=== PATIENT | male | born 1955 | race Caucasian/White ===

== ENCOUNTER 2016-07-07 13:08 | Emergency (ER) | payer BC ==
[~2016-07-07] VITALS: Ht 172.7 cm; Wt 121.0 kg
[~2016-07-07 13:08] MED LIST: ASPI81TA21 PO; CHN/1 PO; HYDR25TA4 PO; LISI-729 PO; OMEG10007 PO; OMEP40CA PO; TRAM-10 PO; VSC/10 PO
[2016-07-07 13:12] VITALS: TEMP 37; Ht 172.7 cm; Wt 121.0 kg
[2016-07-07] MEDS ORDERED: SODIUM CHLORIDE 0.9% 1000ML 500 ML IV STA (13:46)
[2016-07-07] MEDS ORDERED: ONDANSETRON INJ 2 MG/ML 2 ML VIAL IV STA (13:46)
[2016-07-07] MEDS ORDERED: ALBUT/IPRATROP 3MG/0.5MG NEB 3 ML VIAL INH STA (13:46)
[2016-07-07] MEDS ORDERED: SODIUM CHLORIDE 0.9% 1000ML 1,000 ML IV STA (13:46)
--- NOTE | 2016-07-07 14:27 | DIAGNOSTIC IMAGING REPORT ---
CHEST ONE VIEW PORTABLE CLINICAL HISTORY: Respiratory distress, dyspnea, flulike symptoms. COMPARISON STUDY: 01/15/2015 FINDINGS: The heart is at the upper limits of normal in size. There is no overt failure. There is no lobar consolidation. There are no pleural effusions. There is a linear band of atelectasis/scarring at the right lung base.[ IMPRESSION: No active disease in the chest. Electronically signed by: Chava Lazaro M.D. 07/07/2016 2:25 PM Dictated Date/Time: 07/07/2016 2:24 PM
[2016-07-07 14:28] LABS: BASO % 0.1 %; BASO ABS # 0.01 K/uL (0-0.2); COMPLETE YES; EOS % 0.5 %; HEMATOCRIT 43.9 % (42-52); IG% 0.2 %; LYMPH % 17.2 %; LYMPH ABS # 2.12 K/uL (1.2-3.4); MEAN CELL VOLUME 82.4 fL (80-100); MEAN CORPUSCULAR HEMOGLOBIN 29.3 pg (25-34); MEAN CORPUSCULAR HGB CONC 35.5 g/dl (32-36); MONO % 5.1 %; NEUT % 76.9 %; PLATELET COUNT 197 K/uL (130-400); RED BLOOD COUNT 5.33 M/uL (4.7-6.1); WHITE BLOOD COUNT 12.31 K/uL (4.8-10.8)
[2016-07-07 14:47] LABS: BLOOD UREA NITROGEN 11 mg/dl (7-18); CALCIUM 8.6 mg/dl (8.5-10.1); CARBON DIOXIDE 27 mmol/L (21-32); CHLORIDE 100 mmol/L (98-107); CREATININE 0.91 mg/dl (0.60-1.40); GLUCOSE 91 mg/dl (70-99); POTASSIUM 3.4 mmol/L (3.5-5.1); SODIUM 139 mmol/L (136-145)
[2016-07-07 14:51] LABS: ALB/GLOB RATIO 1.1 (0.9-2); ALKALINE PHOSPHATASE 77 U/L (45-117); ALT/SGPT 47 U/L (12-78); AST/SGOT 40 U/L (15-37)
[2016-07-07 14:57] VITALS: O2SAT 91
[2016-07-07 15:05] LABS: URINE APPEARANCE CLEAR (CLEAR); URINE BILIRUBIN NEG (NEG); URINE COLOR YELLOW; URINE NITRITE NEG (NEG); URINE PH 8.5 (4.5-7.5); URINE SPECIFIC GRAVITY 1.015 (1.000-1.030); UROBILINOGEN NEG (NEG); ZZUR CULT IF INDIC CLEAN CATCH YES
[2016-07-07 15:16] LABS: MANUAL MICROSCOPIC REQUIRED? NO; REVIEW REQ? NO
[2016-07-07] MEDS ORDERED: SODIUM CHLORIDE 0.9% 500ML 500 ML IV STA (15:23)
[2016-07-07] MEDS ORDERED: ALBUTEROL HFA 8 GM INHALER INH ONE (15:45)
--- NOTE | 2016-07-07 15:55 | EMERGENCY ROOM VISIT NOTE ---
History Report prepared by Elida: Ara Dsouza Under the Supervision of: Dr. Robert Schaefer M.D. First contact with patient: 13:39 Chief Complaint: FLU LIKE SX Stated Complaint: FLU LIKE SX History of Present Illness The patient is a 60 year old male who presents to the Emergency Room with complaints of improved shortness of breath starting about a week ago. He reports a cough with greenish phlegm and nasal congestion. He has some back pain with coughing. He also complains of weakness. He has worsening symptoms with lying down. He reports a resolved sore throat, fevers, and chills. The patient has had a normal fluid intake. He denies vomiting, diarrhea, urinary symptoms, or any other complaints. He used to be a smoker. He has a history of mild COPD but does not have any inhalers. He did not receive a flu shot this year. The patient had recent ill contacts at work. 3 months ago, the patient had surgery on his bladder for bladder cancer. Source of History: patient Onset: about a week ago Position: other (global) Quality: other (shortness of breath) Timing: other (improved) Modifying Factors (Worsening): other (lying down) Associated Symptoms: + back pain, + chills (resolved), + cough, + fevers ( resolved), + sorethroat (resolved), + weakness, No diarrhea, No urinary symptoms , No vomiting Review of Systems See HPI for pertinent positives & negatives. A total of 10 systems reviewed and were otherwise negative. Past Medical & Surgical Medical Problems: (1) atypical chest discomfort (2) Benign hypertension (3) Bladder cancer (4) cold hands and feet (5) COPD (chronic obstructive pulmonary disease) (6) Hyperlipidemia Family History Diabetes mellitus FH: heart disease FHx: lung disease Hypertension Social History Smoking Status: Former Smoker Marital Status: Occupation Status: employed Current/Historical Medications Scheduled Albuterol Hfa (Ventolin Hfa), 3 PUFFS INH Q4 Aspirin Enteric Coated (Ecotrin Or Generic), 81 MG PO QAM Azithromycin (Zithromax Z-Zach), 1 PKT PO DIRECTED Fish Oil ([place]-3), 300 MG PO QAM Hydrochlorothiazide (Hctz), 25 MG PO QAM Lisinopril (Prinivil), 5 MG PO QAM Omeprazole (Prilosec), 40 MG PO QAM Prednisone (Prednisone), 2 TAB PO DAILY Solifenacin Succinate (Vesicare), 1 TAB PO DAILY Allergies Coded Allergies: Statins (Verified Allergy, Unknown, MUSCLE ACHES, 07/07/16) Codeine (Verified Adverse Reaction, Intermediate, nausea, 07/07/16) Shellfish (Verified Adverse Reaction, Intermediate, nausea, 07/07/16) Physical Exam Vital Signs Date Time Temp Pulse Resp B/P Pulse Ox O2 Delivery O2 Flow Rate FiO2 07/07/16 16:51 76 16 148/68 96 07/07/16 14:59 80 07/07/16 14:57 91 Room Air 07/07/16 14:54 78 22 124/72 93 Room Air 07/07/16 13:12 37.0 85 20 133/86 94 Room Air Physical Exam GENERAL: Patient is in no acute distress. HEENT: No acute trauma, normocephalic atraumatic, mucous membranes moist, no nasal congestion, no scleral icterus. No throat erythema or exudate. NECK: No stridor, no adenopathy, no meningismus, trachea is midline. LUNGS: Diminished breath sounds bilaterally. Breath sounds are equal. Scattered wheezing heard, no crackles or rhonchi. HEART: Without murmurs gallops or rubs, regular rate and rhythm. ABDOMEN: Soft, nontender, bowel sounds positive, no hernias, no peritonitis. EXTREMITIES: No cyanosis or edema, full range of motion of all the joints without pain or difficulty, no signs for acute trauma. NEUROLOGIC: Oriented x 3, no acute motor or sensory deficits, no focal weakness. SKIN: No rash, no jaundice, no diaphoresis. Medical Decision & Procedures ER Provider Diagnostic Interpretation: X-ray results as stated below per interpretation by me and the radiologist: CHEST ONE VIEW PORTABLE CLINICAL HISTORY: Respiratory distress, dyspnea, flulike symptoms. COMPARISON STUDY: 01/15/2015 FINDINGS: The heart is at the upper limits of normal in size. There is no overt failure. There is no lobar consolidation. There are no pleural effusions. There is a linear band of atelectasis/scarring at the right lung base.[ IMPRESSION: No active disease in the chest. Electronically signed by: Chava Lazaro M.D. 07/07/2016 2:25 PM Dictated Date/Time: 07/07/2016 2:24 PM Laboratory Results 07/07/16 14:05 Red Blood Count 5.33, Mean Corpuscular Volume 82.4, Mean Corpuscular Hemoglobin 29.3, Mean Corpuscular Hemoglobin Concent 35.5, Mean Platelet Volume 9.0, Neutrophils (%) (Auto) 76.9, Lymphocytes (%) (Auto) 17.2, Monocytes (%) (Auto) 5.1, Eosinophils (%) (Auto) 0.5, Basophils (%) (Auto) 0.1, Neutrophils # (Auto) 9.46, Lymphocytes # (Auto) 2.12, Monocytes # (Auto) 0.63, Eosinophils # (Auto) 0.06, Basophils # (Auto) 0.01 07/07/16 14:05 Test 07/07/16 13:27 07/07/16 14:05 07/07/16 14:20 Urine Color YELLOW Urine Appearance CLEAR (CLEAR) Urine pH 8.5 (4.5-7.5) Urine Specific [place] 1.015 (1.000-1.030) Urine Protein NEG (NEG) Urine Glucose (UA) NEG (NEG) Urine Ketones NEG (NEG) Urine Occult Blood 1+ (NEG) Urine Nitrite NEG (NEG) Urine Bilirubin NEG (NEG) Urine Urobilinogen NEG (NEG) Urine Leukocyte Esterase TRACE (NEG) Urine WBC (Auto) 10-30 /hpf (0-5) Urine RBC (Auto) 10-30 /hpf (0-4) Urine Hyaline Casts (Auto) 1-5 /lpf (0-5) Urine Epithelial Cells (Auto) 10-20 /lpf (0-5) Urine Bacteria (Auto) NEG (NEG) White Blood Count 12.31 K/uL (4.8-10.8) Red Blood Count 5.33 M/uL (4.7-6.1) Hemoglobin 15.6 g/dL (14.0-18.0) Hematocrit 43.9 % (42-52) Mean Corpuscular Volume 82.4 fL (80-100) Mean Corpuscular Hemoglobin 29.3 pg (25-34) Mean Corpuscular Hemoglobin Concent 35.5 g/dl (32-36) Platelet Count 197 K/uL (130-400) Mean Platelet Volume 9.0 fL (7.4-10.4) Neutrophils (%) (Auto) 76.9 % Lymphocytes (%) (Auto) 17.2 % Monocytes (%) (Auto) 5.1 % Eosinophils (%) (Auto) 0.5 % Basophils (%) (Auto) 0.1 % Neutrophils # (Auto) 9.46 K/uL (1.4-6.5) Lymphocytes # (Auto) 2.12 K/uL (1.2-3.4) Monocytes # (Auto) 0.63 K/uL (0.11-0.59) Eosinophils # (Auto) 0.06 K/uL (0-0.5) Basophils # (Auto) 0.01 K/uL (0-0.2) RDW Standard Deviation 43.9 fL (36.4-46.3) RDW Coefficient of Variation 14.6 % (11.5-14.5) Immature Granulocyte % (Auto) 0.2 % Immature Granulocyte # (Auto) 0.03 K/uL (0.00-0.02) Anion Gap 12.0 mmol/L (3-11) Est Creatinine Clear Calc Drug Dose 107.8 ml/min Estimated GFR () 105.1 Estimated GFR (Non- 90.6 BUN/Creatinine Ratio 12.0 (10-20) Calcium Level 8.6 mg/dl (8.5-10.1) Total Bilirubin 0.6 mg/dl (0.2-1) Aspartate Amino Transf (AST/SGOT) 40 U/L (15-37) Alanine Aminotransferase (ALT/SGPT) 47 U/L (12-78) Alkaline Phosphatase 77 U/L (45-117) Troponin I < 0.015 ng/ml (0-0.045) Total Protein 6.8 gm/dl (6.4-8.2) Albumin 3.6 gm/dl (3.4-5.0) Globulin 3.2 gm/dl (2.5-4.0) Albumin/Globulin Ratio 1.1 (0.9-2) Influenza Type A (RT-PCR) Neg for Influ A (NEG) Influenza Type B (RT-PCR) Neg for Influ B (NEG) Laboratory results reviewed by me. Medications Administered Medications (Trade) Dose Ordered Sig/Jasen Route Start Time Stop Time Status Last Admin Dose Admin Sodium Chloride 500 ml @ 999 mls/hr Q31M STAT IV 07/07/16 13:46 07/07/16 14:16 DC 07/07/16 14:24 999 MLS/HR Sodium Chloride (Nss 1000ml) 1,000 ml @ 200 mls/hr Q5H STAT IV 07/07/16 13:46 07/07/16 17:28 DC 07/07/16 14:24 200 MLS/HR Albuterol/ Ipratropium 3 ml 3 ml NOW STAT INH 07/07/16 13:46 07/07/16 13:50 DC 07/07/16 14:24 3 ML Sodium Chloride (Nss 500ml) 500 ml @ 999 mls/hr Q31M STAT IV 07/07/16 15:23 07/07/16 15:53 DC 07/07/16 15:23 999 MLS/HR Albuterol (Ventolin Hfa Inhaler) 2 puffs NOW ONCE INH 07/07/16 15:45 07/07/16 15:46 DC 07/07/16 16:53 2 PUFFS ECG Indication: SOB/dyspnea Rate (beats per minute): 79 Rhythm: normal sinus Findings: no acute ischemic change, no ectopy, other (Possible old inferior infarct) ED Course 1339: The patient was evaluated in room C02B. A complete history and physical exam was performed. 1346: DuoNeb 3 ml INH, Sodium Chloride 1000 ml @ 200 mls/hr IV, Zofran Inj 4 mg IV, Sodium Chloride 500 ml @ 999 mls/hr IV 1523: Sodium Chloride 500 ml @ 999 mls/hr IV 1545: Albuterol 2 puffs INH 1635: Reevaluated the patient. Discussed results and discharge instructions: He verbalized understanding and agreement. The patient is ready for discharge. Medical Decision Differential diagnosis includes but is not limited to bronchitis, pneumonia, influenza, dehydration, anemia, electrolyte imbalance, UTI. There is a mild leukocytosis which could be consistent with infection or possibly just the stress of his presentation. No anemia. No significant electrolyte abnormality, kidney failure or hepatitis. Influenza testing is negative. Chest x-ray does not show pneumonia or CHF. EKG shows a normal sinus rhythm, there was no acute ischemia. Cardiac enzyme testing 1 is not suggestive of acute cardiac injury. Urinalysis does not show infection. The patient received IV saline, he was given a DuoNeb. He received albuterol via MDI. He received IV Zofran. The patient is doing well, he is not hypoxic. I do believe the patient can be discharged home. Because of his recent complicated issues and treatment for bladder malignancy, I am placing him on Zithromax, he'll be on albuterol for the wheezing, prednisone for the wheezing. Hydration and rest were encouraged. Outpatient follow-up was encouraged. He needs to return here for worsening symptoms or worsening difficulty breathing. In short, he appears to have an acute bronchitis. Impression Primary Impression: Acute bronchitis Additional Impressions: Weakness Dehydration Scribe Attestation The scribe's documentation has been prepared under my direction and personally reviewed by me in its entirety. I confirm that the note above accurately reflects all work, treatment, procedures, and medical decision making performed by me. Departure Information Dispostion Home / Self-Care Prescriptions Azithromycin (ZITHROMAX Z-ZACH) 250 Mg Tab 1 PKT PO DIRECTED, #1 PKT Prov: Robert Schaefer M.D. 07/07/16 Prednisone (Prednisone) 20 Mg Tab 2 TAB PO DAILY for 5 Days, #10 TAB Prov: Robert Schaefer M.D. 07/07/16 Albuterol Hfa (VENTOLIN HFA) 200 Puffs/34425 Mcg Aers 3 PUFFS INH Q4, #1 INHALER Prov: Robert Schaefer M.D. 07/07/16 Referrals Erna Jenkins D.O. (PCP) Forms HOME CARE DOCUMENTATION FORM, IMPORTANT VISIT INFORMATION Patient Instructions My [facility] Additional Instructions stay well hydrated rest prednisone daily for 5 days albuterol 3 puffs every 4 hours zpac as directed return if worsening see adriana vargas for a recheck this week Problem Qualifiers
[2016-07-07 16:23] LABS: INFLUENZA A PCR Neg for Influ A (NEG); INFLUENZA B PCR Neg for Influ B (NEG)
[2016-07-07] MEDS ORDERED: AZITTAB PO (16:41)
[2016-07-07] MEDS ORDERED: VNTHFA/IN INH (16:41)
[2016-07-07] MEDS ORDERED: PRED20TA PO (16:41)
[2016-07-07 16:51] VITALS: BP 148/68; PULSE 76; O2SAT 96
[2016-09-20] MEDS ORDERED: ALBU4TAB10 PO (10:52)
[2016-09-20] MEDS ORDERED: PRVHFAIN INH (10:53)
[2017-02-08] MEDS ORDERED: LISI-461 PO (09:22)
[2017-02-08] MEDS ORDERED: GABA-112 PO (09:23)
[2017-02-08] MEDS ORDERED: CHN5 PO (09:38)
== END 2016-07-07 17:11 | disposition home or self-care (01) ==
LOC: C.EDB 13:09 → C.EDC 17:11
DX: J44.0 Chronic obstructive pulmonary disease with (acute) lower respiratory infection (principal); J20.9 Acute bronchitis, unspecified; R53.1 Weakness; E86.0 Dehydration; C67.9 Malignant neoplasm of bladder, unspecified; I10 Essential (primary) hypertension; Z87.891 Personal history of nicotine dependence; Z82.49 Family history of ischemic heart disease and other diseases of the circulatory system; Z83.3 Family history of diabetes mellitus; Z79.52 Long term (current) use of systemic steroids; Z79.82 Long term (current) use of aspirin; Z79.899 Other long term (current) drug therapy

== ENCOUNTER → 2017-01-04 | Outpatient (CLI) | payer BC ==
[~2017-01-04] MED LIST changes: -CHN/1 PO; +CHN5 PO; +GABA-112 PO; +LISI-461 PO; +PRVHFAIN INH; -TRAM-10 PO
--- NOTE | 2017-01-04 14:14 | DIAGNOSTIC IMAGING REPORT ---
RIGHT SHOULDER MIN 2 VIEWS ROUTINE CLINICAL HISTORY: RIGHT SHOULDER PAIN Right pain COMPARISON: None. DISCUSSION: Probable grade 1 separation right acromioclavicular joint. Minimal degenerative change glenohumeral joint. No evidence for fracture. No abnormal soft tissue calcifications. Probable mild Hill-Sachs type deformity posterior lateral aspect humeral head. There is no evidence for soft tissue swelling. IMPRESSION: Grade 1 separation right acromioclavicular joint. Electronically signed by: Vaibhav Owusu M.D. 01/04/2017 2:13 PM Dictated Date/Time: 01/04/2017 2:12 PM
== END | disposition home or self-care (01) ==
LOC: C.RAD1850 13:49
PROVIDERS: ATTEND Nurse Practitioner Family
DX: S43.101A Unspecified dislocation of right acromioclavicular joint, initial encounter (principal); W19.XXXA Unspecified fall, initial encounter; M25.511 Pain in right shoulder

== ENCOUNTER → 2017-01-24 | Outpatient (CLI) | payer BC ==
[2017-01-24 11:13] LABS: BLOOD UREA NITROGEN 10 mg/dl (7-18); CREATININE 0.99 mg/dl (0.60-1.40)
== END | disposition home or self-care (01) ==
LOC: C.LAB 09:44
PROVIDERS: ATTEND Orthopaedic Surgery Orthopaedic Surgery of the Spine
DX: M75.121 Complete rotator cuff tear or rupture of right shoulder, not specified as traumatic (principal); M25.511 Pain in right shoulder

== ENCOUNTER → 2017-03-16 | Outpatient (CLI) | payer BC ==
[~2017-03-16] MED LIST changes: -LISI-729 PO; -PRVHFAIN INH; -VSC/10 PO
[2017-03-16 12:58] LABS: BASO % 0.3 %; BASO ABS # 0.03 K/uL (0-0.2); COMPLETE YES; HEMATOCRIT 43.9 % (42-52); IG% 0.7 %; LYMPH % 39.1 %; LYMPH ABS # 3.56 K/uL (1.2-3.4); MEAN CELL VOLUME 81.8 fL (80-100); MEAN CORPUSCULAR HEMOGLOBIN 28.5 pg (25-34); MEAN CORPUSCULAR HGB CONC 34.9 g/dl (32-36); MEAN PLATELET VOLUME 9.4 fL (7.4-10.4); MONO % 6.1 %; NEUT % 50.8 %; PLATELET COUNT 267 K/uL (130-400); RED BLOOD COUNT 5.37 M/uL (4.7-6.1); WHITE BLOOD COUNT 9.11 K/uL (4.8-10.8)
[2017-03-16 13:32] LABS: BLOOD UREA NITROGEN 11 mg/dl (7-18); BUN/CREATININE RATIO 12.5 (10-20); CALCIUM 8.6 mg/dl (8.5-10.1); CARBON DIOXIDE 28 mmol/L (21-32); CHLORIDE 102 mmol/L (98-107); CREATININE 0.91 mg/dl (0.60-1.40); GLUCOSE 130 mg/dl (70-99); POTASSIUM 3.1 mmol/L (3.5-5.1); SODIUM 140 mmol/L (136-145)
== END | disposition home or self-care (01) ==
LOC: C.CPL 11:21
PROVIDERS: ATTEND Orthopaedic Surgery
DX: Z01.810 Encounter for preprocedural cardiovascular examination (principal); Z01.812 Encounter for preprocedural laboratory examination; M25.511 Pain in right shoulder; I44.4 Left anterior fascicular block

== ENCOUNTER 2017-05-11 05:20 | Day surgery (SDC) | payer BC ==
[2017-02-08 09:26] VITALS: BMI 40.0
[2017-03-08 09:29] VITALS: BMI 40.0
--- NOTE | 2017-05-10 18:42 | HISTORY & PHYSICAL EXAMINATION ---
DATE OF ADMISSION: 05/11/2017 CHIEF COMPLAINT: Medium sized right rotator cuff tear. HISTORY OF PRESENT ILLNESS: Zain is a pleasant 61-year-old male who injured his shoulder on 11/23/2016. He was doing some activities when the ladder broke and he ended up falling on to his shoulder. A CT scan and clinical examination have been diagnostic for medium size rotator cuff tear. After failing conservative treatment, he has elected to undergo arthroscopy. PAST MEDICAL HISTORY: Significant for hypertension, hyperlipidemia, sleep apnea, hiatal hernia, obesity and bladder cancer. PAST SURGICAL HISTORY: Significant for umbilical hernia repair. ALLERGIES: None. MEDICATIONS: Include fish oil daily, omeprazole 40 mg daily, lisinopril 10 mg daily, hydrochlorothiazide 25 mg daily and a low dose Leonardo aspirin. SOCIAL HISTORY: He smokes a pack a day. He denies any alcohol use. PHYSICAL EXAMINATION: GENERAL: He is awake, alert and oriented x3. He is in no apparent distress. He is very pleasant. HEENT: Pupils are equal, round and reactive to light. Extraocular motion intact. Oral mucosa is pink and moist. HEART: Regular rate per radial pulse. LUNGS: Nai symmetrically bilaterally with no audible breath sounds. ABDOMEN: Soft, nontender, nondistended. MUSCULOSKELETAL: On physical examination of his right shoulder, he has decreased active range of motion about 130 degrees of forward elevation, 130 degrees of abduction. He has 4/5 muscle strength with full can testing and 4+/5 muscle strength with external rotation. Negative bear hug and belly press test. He has pain over the far anterior lateral subacromial space. Mild biceps tenderness. No AC joint tenderness. IMAGING: CT arthrogram of the shoulder does show 1.5 cm tear of the supraspinatus with minimal retraction. IMPRESSION: Medium sized right rotator cuff tear. PLAN: Will proceed with an arthroscopic rotator cuff repair. Postoperatively, he will be placed in an arm sling and discharged to home on oral pain medications.
[~2017-05-11] VITALS: Ht 175.3 cm; Wt 125.0 kg
[2017-05-11 05:35] VITALS: BP 138/79; PULSE 65; Ht 175.3 cm; Wt 125.0 kg
[2017-05-11] MEDS ORDERED: CEFAZOLIN 3000MG IV PUSH 15 ML IV SCH (06:00)
[2017-05-11] MEDS ORDERED: ACETAMINOPHEN 500 MG TAB PO SCH (06:00)
[2017-05-11] MEDS ORDERED: LACTATED RINGER'S 1000ML IV SCH (06:00)
[2017-05-11] MEDS ORDERED: LACTATED RINGER'S 1000ML 1,000 ML IV SCH (06:00)
[2017-05-11] MEDS ORDERED: FAMOTIDINE 20 MG TAB PO SCH (06:00)
[2017-05-11] MEDS ORDERED: ROPIVACAINE 0.5% 5 MG/ML 30 ML VIAL ONE (06:15)
--- NOTE | 2017-05-11 06:50 | History & Physical Bridge Note ---
H&P Re-Evaluation Bridge Note: I have examined the patient, reviewed the History & Physical and in the interval since the performance of the History & Physical I have noted the following changes of clinical significance: No changes noted
[2017-05-11] MEDS ORDERED: MIDAZOLAM HCL 1 MG/ML 2ML VIAL ONE (07:02)
[2017-05-11] MEDS ORDERED: ONDANSETRON INJ 2 MG/ML 2 ML VIAL ONE (07:23)
[2017-05-11] MEDS ORDERED: FENTANYL CITRATE INJ 50 MCG/1 ML 2 ML VIAL ONE (07:23)
[2017-05-11] MEDS ORDERED: PROPOFOL IV EMULSION 10 MG/ML 20 ML VIAL IV ONE ×2 (07:23→07:46)
[2017-05-11] MEDS ORDERED: DEXAMETHASONE SOD INJ 4 MG/ML VIAL ONE (07:23)
[2017-05-11] MEDS ORDERED: ROCURONIUM BROMIDE 10 MG/ML 5 ML VIAL IV ONE (07:23)
[2017-05-11] MEDS ORDERED: LIDOCAINE HCL 2% 2 ML VIAL (20MG/ML) ONE (07:23)
[2017-05-11] MEDS ORDERED: KETOROLAC TROMETHAMINE 30 MG/ML VIAL IV. PRN (07:30)
[2017-05-11] MEDS ORDERED: ATROPINE SULFATE 0.1 MG/ML 5ML SYR IV PRN (07:30)
[2017-05-11] MEDS ORDERED: ONDANSETRON INJ 2 MG/ML 2 ML VIAL IV PRN ×2 (07:30→09:15)
[2017-05-11] MEDS ORDERED: FENTANYL CITRATE INJ 50 MCG/1 ML 2 ML VIAL IV PRN (07:30)
[2017-05-11] MEDS ORDERED: LABETALOL HCL IV 5 MG/ML 20ML IV PRN (07:30)
[2017-05-11] MEDS ORDERED: EpINEphrine HCL INJ 1 MG/ML 5ML SYRINGE ONE (07:47)
[2017-05-11] MEDS ORDERED: GLYCOPYRROLATE INJ 0.2 MG/ML VIAL ONE (08:08)
[2017-05-11] MEDS ORDERED: NEOSTIGMINE METHYLSULFATE 5 MG/5 ML SYR ONE (08:08)
[2017-05-11] MEDS ORDERED: EpHEDrine SULFATE INJ 50 MG/ML AMP ONE ×2 (08:20→08:33)
--- NOTE | 2017-05-11 09:10 | OPERATIVE REPORT ---
DATE OF OPERATION: 05/11/2017 PREOPERATIVE DIAGNOSES: Medium sized rotator cuff tear and severe external impingement and biceps tendinopathy of the right shoulder. POSTOPERATIVE DIAGNOSES: Same. PROCEDURE: Right shoulder diagnostic arthroscopy with limited debridement, acromioplasty, medium sized rotator cuff repair and arthroscopic biceps tenodesis. SURGEON: Abhijeet Case DO. TECHNOLOGY RECRUITER: Joce Flores PA-C, whose assistance was necessary for positioning the arm and helping with instrumentation. ANESTHESIA: General with a right interscalene nerve block. COMPLICATIONS: None. CONDITION: Stable to PACU. INDICATIONS: Zain is a pleasant 61-year-old male who has been dealing with chronic right shoulder pain. CT arthrogram and clinical exam were diagnostic for severe external impingement and medium sized rotator cuff tear. After failing conservative treatment, he elected to undergo arthroscopy. DESCRIPTION OF PROCEDURE: On 05/11/2017, he arrived at [facility] for the above procedure. He was seen in the preoperative holding area and the operative extremity was identified and signed. He was given preoperative antibiotics and a right interscalene nerve block. He was taken back to the operating room, laid on the table in supine position and put under general anesthesia. He was then put into the beachchair position. The right shoulder was prepped and draped in sterile fashion. Time-out was done and the patient and operative extremity was properly identified. A scope was introduced in the posterior portal. Diagnostic arthroscopy showed no cartilage damage to the humeral head or the glenoid. There was a little fraying of the anterior labrum. There was a tear of the entire supraspinatus that involved the biceps stephanie mechanism. The infraspinatus, teres minor and subscapularis were intact. An anterior portal was made. A shaver was used to do a limited debridement of the intraarticular structures and the biceps tendon was arthroscopically tenotomized for later tenodesis. The scope was then put into the subacromial space. A lateral portal was made. A shaver was used to do a complete subacromial and subdeltoid bursectomy. An ablator was used to tease the coracoacromial ligament off the undersurface of the acromion and a 5-0 raina was used to complete an acromioplasty of a large Bigliani type 3 acromion. A shaver was used to remove any excess debris and attention was turned to the rotator cuff. An additional anterolateral portal was made and Kathrine cannulas were placed in each of the lateral portals. It was a medium size crescent-shaped rotator cuff tear. The greater tuberosity was prepared with a ring curette and a microfracture. The rotator cuff was then fixed with an Arthrex SpeedBridge configuration. Two 4.75 mm BioComposite SwiveLock suture anchors were placed along the medial row. Each anchor was loaded with 2 fiber tapes. The fiber tapes were passed through the tendon at the anticipated articular margin. A tape from each anchor was brought down to 1 of 2 lateral row SwiveLock suture anchors. This gave a nice knotless SpeedBridge repair. Multiple pictures were taken. The long head of the biceps tendon was also tagged with a fiber link suture and incorporated into the anterior lateral anchor to complete an arthroscopic biceps tenodesis. The scope was then placed back into the glenohumeral joint. The articular margin of the rotator cuff had been restored. Pictures were taken. Arthroscopic instruments were removed from the shoulder. Portal sites were closed with 3-0 nylon. He was then placed in a soft dressing and an abduction arm sling. He was then extubated, transferred to a litter and taken to the postanesthesia care unit in stable condition. He tolerated the procedure well. I attest to the content of the Intraoperative Record and any orders documented therein. Any exception s are noted below.
[2017-05-11] MEDS ORDERED: KETO10TA PO (09:14)
[2017-05-11] MEDS ORDERED: OXYC-57 PO (09:14)
[2017-05-11] MEDS ORDERED: SODIUM CHLORIDE 0.9% 1000ML 1,000 ML IV SCH (09:15)
[2017-05-11] MEDS ORDERED: OXYCODONE/ACETAMINOPHEN 5-325 TAB PO PRN ×2 (09:15)
--- NOTE | 2017-05-11 09:15 | Discharge Instructions ---
Discharge Instructions Date of Service May 11, 2017. Admission Reason for Admission: Right Shoulder Full Thickness Rotator Cuff Tear Discharge Discharge Diagnosis / Problem: SAME ABOVE Discharge Goals Goal(s): Decrease discomfort, Improve function Activity Recommendations Activity Limitations: as noted below Lifting Limitations: until after follow-up appointment Exercise/Sports Limitations: until after follow-up appointment Shower/Bathe: tomorrow . Instructions / Follow-Up Instructions / Follow-Up MEDICATIONS: * Resume previous medications unless instructed otherwise by your surgeon. * Always take pain medication on a full stomach or with food to avoid upset stomach. * Do not drink alcohol or drive while taking narcotics. * Ibuprofen or Tylenol may be taken if narcotic not needed. SPECIAL CARE INSTRUCTIONS: __ None _X_ Keep extremity elevated and iced x 48 hours; apply ice 20-30 minutes 8-10 times/day. May remove at night. __ Sling __24 hrs/day __ Remove at night _X_ Shoulder Immobilizer (MAY REMOVE AFTER 48 HOURS ONLY TO SHOWER AND FOR THERAPY) _X_ 24 hrs/day __ Remove at night _X_ Dressing __ Maintain until seen in office, may shower with plastic over site _X_ Remove dressings in 24-48 hours and then may shower _X_ Cover incisions with band-aids after showering __ Do not remove steri-strips Call physician if chills or temperature rises above 102 degrees or pain unrelieved by prescribed pain medications at . . Current Hospital Diet Patient's current hospital diet: Discharge Diet Recommended Diet: Regular Diet Fluid Restriction: None Procedures Procedures Performed: Right Shoulder Arthroscopy with Medium Rotator Cuff Repair Pending Studies Studies pending at discharge: no Work Instructions Return To Work: after follow-up Lifting Limitations: NO LIFTING WITH RIGHT ARM Medical Emergencies . Who to Call and When: Medical Emergencies: If at any time you feel your situation is an emergency, please call 911 immediately. . Non-Emergent Contact Non-Emergency issues call your: Primary Care Provider Call Non-Emergent contact if: you have a fever, temperature is above 101.5 . "Provider Documentation" section prepared by Joce Flores. . VTE Core Measure Inpt VTE Proph given/why not?: Treatment not indicated
[2017-05-11 09:55] VITALS: BP 126/70; PULSE 73; TEMP 36.9; O2SAT 92
--- NOTE | 2017-05-11 09:56 | Anesthesiology Progress Note ---
Anesthesia Post Op Note Date & Time May 11, 2017 at 09:55 Vital Signs Pain Intensity: 0 Vital Signs Past 12 Hours Date Time Temp Pulse Resp B/P (MAP) Pulse Ox O2 Delivery O2 Flow Rate FiO2 05/11/17 09:40 36.4 76 18 132/80 92 Room Air 05/11/17 09:30 86 18 143/93 92 Room Air 05/11/17 09:20 91 18 137/97 94 Oxymask 05/11/17 09:10 70 18 134/82 94 Oxymask 05/11/17 09:04 36.2 83 18 156/82 94 Oxymask 05/11/17 05:35 65 20 138/79 (98) Room Air Notes Mental Status: alert / awake / arousable, participated in evaluation Pt Amnestic to Procedure: Yes Nausea / Vomiting: adequately controlled Pain: adequately controlled Airway Patency, RR, SpO2: stable & adequate BP & HR: stable & adequate Hydration State: stable & adequate Anesthetic Complications: no major complications apparent
[2017-05-11 10:25] VITALS: BP 126/70; PULSE 85; O2SAT 92
[2017-05-11 10:55] VITALS: BP 122/77; PULSE 78; TEMP 36.8; O2SAT 96
== END 2017-05-11 11:05 | disposition home or self-care (01) ==
LOC: C.ACU 05:20
PROVIDERS: ATTEND Orthopaedic Surgery
DX: S46.011A Strain of muscle(s) and tendon(s) of the rotator cuff of right shoulder, initial encounter (principal); W11.XXXA Fall on and from ladder, initial encounter; M75.41 Impingement syndrome of right shoulder; M75.81 Other shoulder lesions, right shoulder; I10 Essential (primary) hypertension; E78.5 Hyperlipidemia, unspecified; G47.30 Sleep apnea, unspecified; K44.9 Diaphragmatic hernia without obstruction or gangrene; E66.9 Obesity, unspecified; Z85.51 Personal history of malignant neoplasm of bladder; Z79.82 Long term (current) use of aspirin; Z79.899 Other long term (current) drug therapy

== ENCOUNTER 2017-08-03 16:12 | Inpatient (IN) | payer BC, OTHER ==
[~2017-08-03] VITALS: Ht 172.7 cm; Wt 127.3 kg
[~2017-08-03 16:12] MED LIST changes: +KETO10TA PO; +OXYC-57 PO
[2017-08-03] MEDS ORDERED: SODIUM CHLORIDE 0.9% 1000ML 1,000 ML IV STA (19:15)
--- NOTE | 2017-08-03 19:27 | EMERGENCY ROOM VISIT NOTE ---
History Report prepared by Elida: Liliana Contreras Under the Supervision of: Dr. Kermit Nickerson M.D. 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 He notes the abdominal pain started 8 days ago. He states his pain is 1 / 10 in severity. He reports that he went to see Dr. Jenkins, [facility] Hospitalist, who recommended he come into the ED after seeing a bowel obstruction on the CAT scan results. The patient also notes he had black stool and chills. He denies any nausea or vomiting. He is accompanied by his who states he had an umbilical hernia surgery performed about two years ago. Source of History: patient, spouse/significant other () Onset: 8 days ago Position: abdomen Symptom Intensity: 1/10 in severity Associated Symptoms: + chills, + melena, No nausea, No vomiting Review of Systems See HPI for pertinent positives and negatives. A total of ten systems were reviewed and were otherwise negative. Past Medical & Surgical Medical Problems: (1) Webb esophagus (2) Bladder cancer (3) Bladder cancer (4) bladder tumor resected (5) Dyslipidemia (6) GERD (gastroesophageal reflux disease) (7) HTN (hypertension) (8) ANDRES on CPAP Surgical Problems: (1) H/O umbilical hernia repair (2) H/O ventral hernia repair Family History Diabetes mellitus FH: heart disease FHx: lung disease Hypertension Social History Smoking Status: Current Every Day Smoker Marital Status: Occupation Status: employed Current/Historical Medications Scheduled Aspirin Enteric Coated (Ecotrin Or Generic), 81 MG PO QAM Ciprofloxacin Hcl (Cipro), 500 MG PO Q12 Fish Oil ([place]-3), 1 CAP PO QAM Gabapentin (Neurontin), 100 MG PO QAM Hydrochlorothiazide (Hctz), 25 MG PO QAM Lisinopril (Zestril), 10 MG PO QAM Metronidazole (Flagyl), 500 MG PO TID Omeprazole (Prilosec), 40 MG PO QAM Varenicline Tartrate (Chantix), 0.5 MG PO DAILY Allergies Coded Allergies: Statins (Verified Allergy, Unknown, MUSCLE ACHES, 05/11/17) Codeine (Verified Adverse Reaction, Intermediate, nausea, 05/11/17) Shellfish (Verified Adverse Reaction, Intermediate, nausea, 05/11/17) Physical Exam Vital Signs Date Time Temp Pulse Resp B/P (MAP) Pulse Ox O2 Delivery O2 Flow Rate FiO2 08/03/17 20:00 131/87 08/03/17 19:56 94 Room Air 08/03/17 19:52 75 16 124/91 94 Room Air 08/03/17 16:26 36.9 77 16 128/86 94 Room Air Physical Exam GENERAL: Awake, alert, in no distress HENT: Normocephalic, atraumatic. Oropharynx unremarkable. EYES: Normal conjunctiva. Sclera non-icteric. NECK: Supple. No nuchal rigidity. FROM. No JVD. RESPIRATORY: Clear to auscultation. CARDIAC: Regular rate, normal rhythm. Extremities warm and well perfused. Pulses equal. ABDOMEN: Soft, non-distended. Mild periumbilical tenderness No peritoneal signs. RECTAL: Deferred. MUSCULOSKELETAL: Chest examination reveals no tenderness. The back is symmetrical on inspection without obvious abnormality. There is no CVA tenderness to palpation. No joint edema. LOWER EXTREMITIES: Calves are equal size bilaterally and non-tender. No edema. No discoloration. NEURO: Normal sensorium. No sensory or motor deficits noted. SKIN: No rash or jaundice noted. Medical Decision & Procedures ER Provider Diagnostic Interpretation: Outpatient CT impression: "Partial mid small bowel obstruction secondary to soft tissue density wall thickening, mid small bowel with adjacent mesenteric edema and lymphadenopathy. Infectious ileitis, neoplasm, or less likely ischemic etiologies are in the differential." Laboratory Results 08/03/17 19:48 Red Blood Count 5.50, Mean Corpuscular Volume 83.3, Mean Corpuscular Hemoglobin 29.3, Mean Corpuscular Hemoglobin Concent 35.2, Mean Platelet Volume 8.8 08/03/17 19:48 Test 08/03/17 19:45 08/03/17 19:48 Urine Color YELLOW Urine Appearance CLEAR (CLEAR) Urine pH 5.0 (4.5-7.5) Urine Specific [place] > 1.045 (1.000-1.030) Urine Protein NEG (NEG) Urine Glucose (UA) NEG (NEG) Urine Ketones NEG (NEG) Urine Occult Blood NEG (NEG) Urine Nitrite NEG (NEG) Urine Bilirubin NEG (NEG) Urine Urobilinogen NEG (NEG) Urine Leukocyte Esterase TRACE (NEG) Urine WBC (Auto) 1-5 /hpf (0-5) Urine RBC (Auto) 0-4 /hpf (0-4) Urine Hyaline Casts (Auto) 0 /lpf (0-5) Urine Epithelial Cells (Auto) 5-10 /lpf (0-5) Urine Bacteria (Auto) NEG (NEG) White Blood Count 12.05 K/uL (4.8-10.8) Red Blood Count 5.50 M/uL (4.7-6.1) Hemoglobin 16.1 g/dL (14.0-18.0) Hematocrit 45.8 % (42-52) Mean Corpuscular Volume 83.3 fL (80-100) Mean Corpuscular Hemoglobin 29.3 pg (25-34) Mean Corpuscular Hemoglobin Concent 35.2 g/dl (32-36) Platelet Count 244 K/uL (130-400) Mean Platelet Volume 8.8 fL (7.4-10.4) RDW Standard Deviation 44.9 fL (36.4-46.3) RDW Coefficient of Variation 14.7 % (11.5-14.5) Neutrophils % (Manual) 63.2 % Lymphocytes % (Manual) 19.3 % Variant Lymphocytes % (manual) 11.4 % Monocytes % (Manual) 3.5 % Eosinophils % (Manual) 2.6 % Neutrophils # (Manual) 7.62 K/uL (1.4-6.5) Total Absolute Neutrophils 7.62 K/uL (1.4-6.5) Lymphocytes # (Manual) 2.33 K/uL (1.2-3.4) Absolute Variant Lymphocytes 1.37 K/uL Total Absolute Lymphocytes 3.70 K/uL (1.2-3.4) Monocytes # (Manual) 0.42 K/uL (0.11-0.59) Eosinophils # (Manual) 0.31 K/uL (0-0.5) Anion Gap 9.0 mmol/L (3-11) Est Creatinine Clear Calc Drug Dose 117.5 ml/min Estimated GFR () 108.2 Estimated GFR (Non- 93.4 BUN/Creatinine Ratio 13.2 (10-20) Lactic Acid Level 1.2 mmol/L (0.4-2.0) Calcium Level 8.8 mg/dl (8.5-10.1) Magnesium Level 1.6 mg/dl (1.8-2.4) Total Bilirubin 0.5 mg/dl (0.2-1) Direct Bilirubin 0.1 mg/dl (0-0.2) Aspartate Amino Transf (AST/SGOT) 31 U/L (15-37) Alanine Aminotransferase (ALT/SGPT) 43 U/L (12-78) Alkaline Phosphatase 71 U/L (45-117) Total Protein 6.7 gm/dl (6.4-8.2) Albumin 3.5 gm/dl (3.4-5.0) Lipase 153 U/L (73-393) Laboratory results reviewed by me Medications Administered Medications (Trade) Dose Ordered Sig/Jasen Route Start Time Stop Time Status Last Admin Dose Admin Sodium Chloride 1,000 ml @ 999 mls/hr Q1H1M STAT IV 08/03/17 19:15 08/03/17 20:15 DC 08/03/17 20:07 999 MLS/HR Piperacillin Sod/ Tazobactam Sod (Zosyn Iv) 3.375 gm NOW STAT IV 08/03/17 20:39 08/03/17 20:40 DC 08/03/17 21:27 3.375 GM Potassium Chloride 10 meq/ Prmx 100 ml @ 100 mls/hr Q1H IV 08/03/17 21:00 08/03/17 21:29 DC 08/03/17 21:26 100 MLS/HR ED Course 1916: The patient was evaluated in room B11. A complete history and physical exam was performed. 2033: I discussed the patient with Dr. Nava - [facility], General Surgery. He was agreeable with the results and will evaluate the patent for further management. Medical Decision I reviewed the patient's past medical history, medications, and the nursing notes as described above. Differential diagnosis: Etiologies such as appendicitis, diverticulitis, PUD, biliary pathology, UTI, pancreatitis, obstruction, mesenteric ischemia, aortic pathology, infections, inflammatory bowel disease, renal colic, as well as others were entertained. The patient is a 59-year-old gentleman with a past medical history of a remote prior umbilical area repair presents to emergency department with outpatient CT scan demonstrating a partial mid small bowel obstruction, was done in the setting of the patient's persistent abdominal pain per hpi. While the patient is no acute distress, afebrile stable vital signs. WBC 12. Labs otherwise unremarkable including lactate within normal limits. Case was discussed with Dr. Nava, gen surg on-call who believes that given the patient has been tolerating PO and has been having normal bowel movements no indication for surgery at this time. However given the broad differential of the CT findings recommends treating with antibiotics and repeat a CT scan to monitor for resolution. Recommends admission to medicine and surgery will consult. Case was discussed with Dr. Fabrizio Adams hospitalist to admit the patient for further management. Medication Reconcilliation Current Medication List: was personally reviewed by me Blood Pressure Screening Patient's blood pressure: Normal blood pressure Blood pressure disposition: Did not require urgent referral Consults Time Called: 2029 Consulting Physician: Dr. Nava, [facility] General Surgery Returned Call: 2033 Impression Primary Impression: Partial small bowel obstruction Scribe Attestation The scribe's documentation has been prepared under my direction and personally reviewed by me in its entirety. I confirm that the note above accurately reflects all work, treatment, procedures, and medical decision making performed by me. Departure Information Dispostion Being Evaluated By Hospitalist Referrals Erna Jenkins D.O. (PCP) Forms HOME CARE DOCUMENTATION FORM, IMPORTANT VISIT INFORMATION, WORK / SCHOOL INSTRUCTIONS Patient Instructions My [facility]
[2017-08-03 20:05] LABS: HEMATOCRIT 45.8 % (42-52); HEMOGLOBIN 16.1 g/dL (14.0-18.0); MEAN CELL VOLUME 83.3 fL (80-100); MEAN CORPUSCULAR HEMOGLOBIN 29.3 pg (25-34); MEAN CORPUSCULAR HGB CONC 35.2 g/dl (32-36); MEAN PLATELET VOLUME 8.8 fL (7.4-10.4); PLATELET COUNT 244 K/uL (130-400); RED CELL DISTRIBUTION WIDTH CV 14.7 % (11.5-14.5); RED CELL DISTRIBUTION WIDTH SD 44.9 fL (36.4-46.3); WHITE BLOOD COUNT 12.05 K/uL (4.8-10.8)
[2017-08-03 20:22] LABS: ALBUMIN 3.5 gm/dl (3.4-5.0); CALCIUM 8.8 mg/dl (8.5-10.1); CREATININE 0.85 mg/dl (0.60-1.40); POTASSIUM 2.9 mmol/L (3.5-5.1)
[2017-08-03 20:25] LABS: TOTAL PROTEIN 6.7 gm/dl (6.4-8.2)
[2017-08-03] MEDS ORDERED: POTASSIUM CHLORIDE 10 MEQ / 100ML WTR IV STA (20:28)
[2017-08-03] MEDS ORDERED: PIPERACILLIN/TAZOBACTAM 3.375 GM/100ML D5W IV STA (20:39)
[2017-08-03] MEDS ORDERED: POTASSIUM CHLR 10MEQ / WTR IV SCH (21:00)
[2017-08-03] MEDS ORDERED: ONDANSETRON INJ 2 MG/ML 2 ML VIAL IV PRN (21:15)
[2017-08-03] MEDS ORDERED: ACETAMINOPHEN 325 MG TAB PO PRN (21:15)
[2017-08-03] MEDS ORDERED: VAREPAK PO (21:20)
[2017-08-03] MEDS ORDERED: METR-163 PO (21:20)
[2017-08-03] MEDS ORDERED: CIPR-255 PO (21:20)
[2017-08-03] MEDS ORDERED: PIPERACILL/TAZOBAC CONSULT ACTIVE PRN (21:35)
--- NOTE | 2017-08-03 21:54 | History and Physical ---
History & Physical Date & Time of Service: Aug 03, 2017 ~ 20:45 Chief Complaint: Abdominal Pain Primary Care Physician: Erna Jenkins D.O. History of Present Illness Patient seen with Dr. Dinh. 61 year old male who presents to the ED by referral of his PCP for evaluation of small bowel obstruction. Patient has been having mid abdominal / LLQ pain intermittently for one week. Pain was severe at times. He was seen by his PCP today who obtained a CT as an outpatient that showed partial mid small bowel obstruction secondary to soft tissue density wall thickening mid small bowel with adjacent mesenteric edema and lymphadenopathy. Patient reports he did have one episode of dark stools after taking pepto. He denies any BRBPR. No vomiting. He continues to have bowel movements. He denies fever and chills. No chest pain, shortness of breath, lightheadedness, dizziness, diaphoresis, or syncopal events. No urinary symptoms. In the ED, labs show K+ 2.9 and WBC 12K. Vitals are stable. General surgery was contacted by ED who advised admission for IV antibiotics and monitoring. He was given IVF and IV Zosyn. Past Medical/Surgical History Medical Problems: (1) Webb esophagus Status: Chronic (2) Bladder cancer Status: Resolved (3) Bladder cancer Status: Chronic (4) bladder tumor resected Status: Chronic (5) Dyslipidemia Status: Chronic (6) GERD (gastroesophageal reflux disease) Status: Chronic (7) HTN (hypertension) Status: Chronic (8) ANDRES on CPAP Status: Chronic Surgical Problems: (1) H/O umbilical hernia repair Status: Chronic (2) H/O ventral hernia repair Status: Chronic Family History Diabetes mellitus FH: heart disease FHx: lung disease Hypertension Social History Smoking Status: Current Every Day Smoker Alcohol Use: none Immunizations History of Tetanus Vaccine?: Yes Tetanus Immunization Date: Jan 16, 2012 Multi-Drug Resistant Organisms History of MDRO: No Allergies Coded Allergies: Statins (Verified Allergy, Unknown, MUSCLE ACHES, 05/11/17) Codeine (Verified Adverse Reaction, Intermediate, nausea, 05/11/17) Shellfish (Verified Adverse Reaction, Intermediate, nausea, 05/11/17) Home Medications Scheduled Aspirin Enteric Coated (Ecotrin Or Generic), 81 MG PO QAM Ciprofloxacin Hcl (Cipro), 500 MG PO Q12 Fish Oil ([place]-3), 1 CAP PO QAM Gabapentin (Neurontin), 100 MG PO QAM Hydrochlorothiazide (Hctz), 25 MG PO QAM Lisinopril (Zestril), 10 MG PO QAM Metronidazole (Flagyl), 500 MG PO TID Omeprazole (Prilosec), 40 MG PO QAM Varenicline Tartrate (Chantix), 0.5 MG PO DAILY Review of Systems ROS per HPI, all other systems reviewed and negative Physical Exam Vital Signs Date Time Temp Pulse Resp B/P (MAP) Pulse Ox O2 Delivery O2 Flow Rate FiO2 08/03/17 19:56 94 Room Air 08/03/17 19:52 75 16 124/91 94 Room Air 08/03/17 16:26 36.9 77 16 128/86 94 Room Air please refer to Dr. Dinh's addendum for physical exam Diagnostics Laboratory Results Results Past 24 Hours Test 08/03/17 19:45 08/03/17 19:48 Range/Units Urine Color YELLOW Urine Appearance CLEAR CLEAR Urine pH 5.0 4.5-7.5 Urine Specific [place] > 1.045 1.000-1.030 Urine Protein NEG NEG Urine Glucose (UA) NEG NEG Urine Ketones NEG NEG Urine Occult Blood NEG NEG Urine Nitrite NEG NEG Urine Bilirubin NEG NEG Urine Urobilinogen NEG NEG Urine Leukocyte Esterase TRACE NEG Urine WBC (Auto) 1-5 0-5 /hpf Urine RBC (Auto) 0-4 0-4 /hpf Urine Hyaline Casts (Auto) 0 0-5 /lpf Urine Epithelial Cells (Auto) 5-10 0-5 /lpf Urine Bacteria (Auto) NEG NEG White Blood Count 12.05 4.8-10.8 K/uL Red Blood Count 5.50 4.7-6.1 M/uL Hemoglobin 16.1 14.0-18.0 g/dL Hematocrit 45.8 42-52 % Mean Corpuscular Volume 83.3 80-100 fL Mean Corpuscular Hemoglobin 29.3 25-34 pg Mean Corpuscular Hemoglobin Concent 35.2 32-36 g/dl Platelet Count 244 130-400 K/uL Mean Platelet Volume 8.8 7.4-10.4 fL RDW Standard Deviation 44.9 36.4-46.3 fL RDW Coefficient of Variation 14.7 11.5-14.5 % Neutrophils % (Manual) 63.2 % Lymphocytes % (Manual) 19.3 % Variant Lymphocytes % (manual) 11.4 % Monocytes % (Manual) 3.5 % Eosinophils % (Manual) 2.6 % Neutrophils # (Manual) 7.62 1.4-6.5 K/uL Total Absolute Neutrophils 7.62 1.4-6.5 K/uL Lymphocytes # (Manual) 2.33 1.2-3.4 K/uL Absolute Variant Lymphocytes 1.37 K/uL Total Absolute Lymphocytes 3.70 1.2-3.4 K/uL Monocytes # (Manual) 0.42 0.11-0.59 K/uL Eosinophils # (Manual) 0.31 0-0.5 K/uL Sodium Level 136 136-145 mmol/L Potassium Level 2.9 3.5-5.1 mmol/L Chloride Level 99 98-107 mmol/L Carbon Dioxide Level 27 21-32 mmol/L Anion Gap 9.0 3-11 mmol/L Blood Urea Nitrogen 11 7-18 mg/dl Creatinine 0.85 0.60-1.40 mg/dl Est Creatinine Clear Calc Drug Dose 117.5 ml/min Estimated GFR () 108.2 Estimated GFR (Non- 93.4 BUN/Creatinine Ratio 13.2 10-20 Random Glucose 87 70-99 mg/dl Lactic Acid Level 1.2 0.4-2.0 mmol/L Calcium Level 8.8 8.5-10.1 mg/dl Magnesium Level 1.6 1.8-2.4 mg/dl Total Bilirubin 0.5 0.2-1 mg/dl Direct Bilirubin 0.1 0-0.2 mg/dl Aspartate Amino Transf (AST/SGOT) 31 15-37 U/L Alanine Aminotransferase (ALT/SGPT) 43 12-78 U/L Alkaline Phosphatase 71 45-117 U/L Total Protein 6.7 6.4-8.2 gm/dl Albumin 3.5 3.4-5.0 gm/dl Lipase 153 73-393 U/L Microbiology Results 08/03/17 Blood Culture, Received Pending 08/03/17 Blood Culture, Received Pending Diagnostic Radiology CT ABD/PELVIS IMPRESSION (outpatient): Partial mid small bowel obstruction secondary to soft tissue density wall thickening mid small bowel with adjacent mesenteric edema and lymphadenopathy. Infectious ileitis, neoplasm, or less likely ischemic etiologies are in the differential. Perivesical stranding, possibly posttreatment changes. Small left bladder diverticulum. The bladder is decompressed. No definite enhancing bladder mass appreciated this time. Bilateral renal cysts, unchanged. Hepatic steatosis and mild hepatomegaly. Impression Assessment and Plan ABDOMINAL PAIN POSSIBLE SBO ILEITIS - admit to med/surg - patient presenting to ED by referral of PCP after outpatient CT scan showed partial SBO and possible ileitis; patient has been having intermittent abdominal pain x 1 week - currently pain free, no nausea or vomiting - Dr. Nava contacted by ED who advised IV antibiotics and NPO - s/p Zosyn in the ED, will continue with - IVF - may need follow up colonoscopy, consider GI evaluation - also may need follow up CT due to mesenteric edema and lymphadenopathy noted on today's CT (patient with history of bladder cancer s/p treatment, follows with Dr. Hawk) HYPOKALEMIA - replace, follow up K+ levels in morning - check Mg+ - possibly diuretic induced HTN - BP controlled - continue Lisinopril - will hold HCTZ due to hypokalemia and receiving IVF for SBO DVT PROPHYLAXIS - SCDs in the event patient needs an invasive procedure DISPO - In my clinical judgment this beneficiary meets acute admission criteria, established by [facility], that includes being hospitalized through two midnights. I have seen and examined the patient and agree with the assessment and plan above. He is also a smoker who is obese and has ANDRES on CPAP. Nicoderm was ordered and he was counseled to quit smoking (especially in setting of bladder cancer history). He informs us that he is one month into Chantix but still smoking. He had pain one week ago that resolved and then returned. With the CT findings above, there is concern for a primary small bowel tumor for which further investigation is warranted. Will defer repeat imaging and plan for diagnosis to the Surgery team. He is currently stable and without nausea or vomiting and with no fevers or chills, however, will allow bowel rest for now and keep him NPO and give IV Zosyn to see if this improves the inflammation present in the ileum. On physical exam vitals are stable and he is afebrile, mentating well. He is obese and is in no acute distress. Head is NC/AT, PERRL , pharynx clear with MMM. Lungs are CTAB. Heart sounds are regular rate and rhythm with S1 and S2 heard. No murmurs, gallops or rubs are present. +BS present, abdomen is protuberant and soft without distension. Abdomen is non- tender. Extremities are normal and without edema. Neuro exam is grossly normal. Pt moves all extremities with ease and moves independently without assistance. Skin is warm and dry without rashes. Fabrizio, DO Level of Care Med/Surg Resuscitation Status FULL RESUSCITATION VTE Prophylaxis VTE Risk Assessment Done? Y/N: Yes Risk Level: Moderate Given or contraindicated: Enoxaparin (Lovenox)SQ
[2017-08-03 22:05] VITALS: BP 116/77; PULSE 73; TEMP 36.8; O2SAT 95; Ht 172.7 cm; Wt 127.3 kg
[2017-08-03] MEDS: POTASSIUM CHLORIDE INJ 40 MEQ in D5W AND NSS 1,000 ML IV SCH (22:42)
[2017-08-03] MEDS: POTASSIUM CHLORIDE 20 MEQ TABCR PO SCH (22:45)
[2017-08-03] MEDS: MAGNESIUM SULFATE 1GM / D5W 1 GM in PREMIXED IN D5W 100 ML IV SCH ×2 (22:45→23:47)
[2017-08-03] MEDS: NICOTINE 21 MG/24 HR TDSY TD SCH (22:52)
[2017-08-03 23:13] VITALS: BP 117/74; PULSE 72; TEMP 36.6; O2SAT 94
[2017-08-04] MEDS ORDERED: PNEUMOCOCCAL POLYSACCHARIDES 25 MCG/0.5 ML VIAL/SYR IM. ONE (00:30)
[2017-08-04] MEDS ORDERED: INFLUENZA ADMINISTRATION CHARGE ONE (00:30)
[2017-08-04] MEDS ORDERED: PNEUMOCOCCAL ADMINISTRATION CHARGE ONE (00:30)
[2017-08-04] MEDS ORDERED: INFLUENZA VIRUS QUAD VACCINE 0.5 ML SYR IM. ONE (00:30)
[2017-08-04] MEDS: MAGNESIUM SULFATE 1GM / D5W 1 GM in PREMIXED IN D5W 100 ML IV SCH ×2 (00:58→01:56)
[2017-08-04] MEDS: PIPERACILL/TAZOBAC IV 4.5 GM in DEXTROSE 5% 100ML IV SCH ×3 (01:57→17:53)
[2017-08-04] MEDS: POTASSIUM CHLORIDE 20 MEQ TABCR PO SCH (02:01)
--- NOTE | 2017-08-04 04:06 | Pre-Operative Consultation ---
History General Date of Service: Aug 04, 2017. Stated Complaint: abdominal pain nearly resolved HPI HPI: The patient is a 61 year old male being seen for a partial SBO seen on CT scan. He has had abdominal pain which started about 8 days ago but has basically resolved. He is passing flatus and BMs. The patient states he has had black stools, a colonoscopy previously was normal. He also complained of chills. He denies any nausea or vomiting. A CT scan shows a mass effect near his SB wall possibly infectious, inflammatory, or neoplastic. Historian: patient Procedure Urgency: Acute Risk Assessment Previous Exercise Tolerance: asymptomatic Self-care (1 MET) Daily beta angelique use?: No Problem List Medical Problems: (1) Acute bronchitis Status: Acute (2) Dehydration Status: Acute (3) Weakness Status: Acute Medical & Surgical History Past Medical History: cancer (bladder), COPD, GERD, high cholesterol, hypertension, lung disease (sleep apnea) Past Surgical History: hernia repair, other (cysto with bladder resection) Family History Family History: COPD, diabetes, heart disease, hypertension Social History Hx Tobacco Use In Past Year?: Yes Smoking Status: Heavy Tobacco Smoker Alcohol: occasionally Drug Use: none Marital status: Housing status: lives with family Occupation status: employed Immunizations Have You Had Tetanus Vaccine: Yes Date Of Tetanus Immunization: Jan 16, 2012 Allergies Allergies: Coded Allergies: Statins (Verified Allergy, Unknown, MUSCLE ACHES, 05/11/17) Codeine (Verified Adverse Reaction, Intermediate, nausea, 05/11/17) Shellfish (Verified Adverse Reaction, Intermediate, nausea, 05/11/17) Medications Current Inpatient Medications Current Inpatient Medications Medications (Trade) Dose Ordered Sig/Jasen Route Start Time Stop Time Status Last Admin Dose Admin Acetaminophen (Tylenol Tab) 650 mg Q4H PRN PO 08/03/17 21:15 09/02/17 21:14 Ondansetron HCl (Zofran Inj) 4 mg Q6H PRN IV 08/03/17 21:15 09/02/17 21:14 Potassium Chloride 40 meq/ Dextrose/Sodium Chloride 1,020 ml @ 125 mls/hr Q8H10M IV 08/03/17 22:30 09/02/17 22:29 08/03/17 22:42 125 MLS/HR Miscellaneous Information (Consult) 1 ea DAILY PRN N/A 08/03/17 21:35 09/02/17 21:34 Gabapentin (Neurontin Cap) 100 mg QAM PO 08/04/17 09:00 09/03/17 08:59 Lisinopril (Zestril Tab) 10 mg QAM PO 08/04/17 09:00 09/03/17 08:59 Pantoprazole Sodium (Protonix Tab) 40 mg QAM PO 08/04/17 09:00 09/03/17 08:59 Enoxaparin Sodium (Lovenox Inj) 40 mg QAM SQ 08/04/17 09:00 09/03/17 08:59 UNV Piperacillin Sod/ Tazobactam Sod 4.5 gm/Dextrose 120 ml @ 30 mls/hr Q8H IV 08/04/17 02:00 08/14/17 01:59 08/04/17 01:57 30 MLS/HR Nicotine (Nicoderm Cq 21MG Patch) 1 patch DAILY TD 08/04/17 09:00 09/03/17 08:59 08/03/17 22:52 1 PATCH Miscellaneous (Remove Nicoderm Patch) 1 ea DAILY@2100 N/A 08/04/17 21:00 09/03/17 20:59 Review of Systems Review of Systems Constitutional: chills, denies diaphoresis, denies fever Eyes: reports: no symptoms ENT: reports: no symptoms reported Cardiovascular: denies: chest pain, chest tightness, chest pressure, diaphoresis, palpitations Respiratory: denies: cough, short of breath, stridor, cyanosis Gastrointestinal: abdominal pain, denies constipation, denies diarrhea, denies nausea, denies vomiting Genitourinary - Male: reports: no symptoms Musculoskeletal: denies back pain, denies joint pain, denies joint swelling, denies muscle stiffness, denies neck pain Integumentary: denies change in color, denies change in hair/nails, denies dryness, denies lumps Neurologic: reports: no symptoms Psychiatric: reports: no symptoms Endocrine: no symptoms Hematologic / Lymphatic: denies: anemia, easy bleeding, easy bruising Allergic / Immunologic: no symptoms Physical Exam Physical Exam General Appearance: + WD/WN, No distress Ears, Nose, Throat: + normal ENT inspection Neck: No abnormal inspection, No tracheal deviation, No lymphadenophy, No stiffness, No tenderness Respiratory: No rales, No decreased breath sounds, No rhonchi, No respiratory distress, No stridor, No wheezing Cardiovascular: No tachycardia, No gallop/S3, No edema, No diastolic murmur, No gallop/S4, No bradycardia, No systolic murmur Abdomen: No rebound, No tenderness, No distension, No hernia, No organomegaly, No guarding Extremities: No deformity, No swelling, No calf tenderness, No inflammation Neurologic/Psychiatric: No motor deficit/weakness, No disorientation, No sensory deficit Skin Characteristics: No abnormal color, No diaphoresis, No pallor, No jaundice , No rash Lymphatic: No abnormal adenopathy Diagnostics Labs Labs Results Past 24 Hours Test 08/03/17 19:45 08/03/17 19:48 Range/Units Urine Color YELLOW Urine Appearance CLEAR CLEAR Urine pH 5.0 4.5-7.5 Urine Specific [place] > 1.045 1.000-1.030 Urine Protein NEG NEG Urine Glucose (UA) NEG NEG Urine Ketones NEG NEG Urine Occult Blood NEG NEG Urine Nitrite NEG NEG Urine Bilirubin NEG NEG Urine Urobilinogen NEG NEG Urine Leukocyte Esterase TRACE NEG Urine WBC (Auto) 1-5 0-5 /hpf Urine RBC (Auto) 0-4 0-4 /hpf Urine Hyaline Casts (Auto) 0 0-5 /lpf Urine Epithelial Cells (Auto) 5-10 0-5 /lpf Urine Bacteria (Auto) NEG NEG White Blood Count 12.05 4.8-10.8 K/uL Red Blood Count 5.50 4.7-6.1 M/uL Hemoglobin 16.1 14.0-18.0 g/dL Hematocrit 45.8 42-52 % Mean Corpuscular Volume 83.3 80-100 fL Mean Corpuscular Hemoglobin 29.3 25-34 pg Mean Corpuscular Hemoglobin Concent 35.2 32-36 g/dl Platelet Count 244 130-400 K/uL Mean Platelet Volume 8.8 7.4-10.4 fL RDW Standard Deviation 44.9 36.4-46.3 fL RDW Coefficient of Variation 14.7 11.5-14.5 % Neutrophils % (Manual) 63.2 % Lymphocytes % (Manual) 19.3 % Variant Lymphocytes % (manual) 11.4 % Monocytes % (Manual) 3.5 % Eosinophils % (Manual) 2.6 % Neutrophils # (Manual) 7.62 1.4-6.5 K/uL Total Absolute Neutrophils 7.62 1.4-6.5 K/uL Lymphocytes # (Manual) 2.33 1.2-3.4 K/uL Absolute Variant Lymphocytes 1.37 K/uL Total Absolute Lymphocytes 3.70 1.2-3.4 K/uL Monocytes # (Manual) 0.42 0.11-0.59 K/uL Eosinophils # (Manual) 0.31 0-0.5 K/uL Sodium Level 136 136-145 mmol/L Potassium Level 2.9 3.5-5.1 mmol/L Chloride Level 99 98-107 mmol/L Carbon Dioxide Level 27 21-32 mmol/L Anion Gap 9.0 3-11 mmol/L Blood Urea Nitrogen 11 7-18 mg/dl Creatinine 0.85 0.60-1.40 mg/dl Est Creatinine Clear Calc Drug Dose 117.5 ml/min Estimated GFR () 108.2 Estimated GFR (Non- 93.4 BUN/Creatinine Ratio 13.2 10-20 Random Glucose 87 70-99 mg/dl Lactic Acid Level 1.2 0.4-2.0 mmol/L Calcium Level 8.8 8.5-10.1 mg/dl Magnesium Level 1.6 1.8-2.4 mg/dl Total Bilirubin 0.5 0.2-1 mg/dl Direct Bilirubin 0.1 0-0.2 mg/dl Aspartate Amino Transf (AST/SGOT) 31 15-37 U/L Alanine Aminotransferase (ALT/SGPT) 43 12-78 U/L Alkaline Phosphatase 71 45-117 U/L Total Protein 6.7 6.4-8.2 gm/dl Albumin 3.5 3.4-5.0 gm/dl Lipase 153 73-393 U/L Microbiology Results 08/03/17 Blood Culture, Received Pending 08/03/17 Blood Culture, Received Pending Impression Assessment and Plan Assessment and Plan Partial SBO with CT finding in outpatient study -IVF -clear diet with current minimal symptoms -IV abx -repeat CT scan on Sunday to re-evaluate CT finding
[2017-08-04] MEDS: POTASSIUM CHLORIDE INJ 40 MEQ in D5W AND NSS 1,000 ML IV SCH (06:13)
--- NOTE | 2017-08-04 07:20 | DIAGNOSTIC IMAGING REPORT ---
K[facility] CLINICAL HISTORY: 61 years-old Male presenting with ileus versus SBO. TECHNIQUE: Single supine view of the abdomen was obtained. COMPARISON: None. FINDINGS: Oral contrast noted throughout the large bowel. Small bowel wall thickening may be present in the left abdomen. No gross evidence of bowel obstruction. No gross evidence of free intra-abdominal gas. Allowing for bowel gas and stool, no calcifications to suggest nephrolithiasis. Degenerative changes of the spine. Lung bases clear. IMPRESSION: 1. No gross evidence of bowel obstruction or free air. 2. Oral contrast noted in the large bowel. 3. Mild small bowel wall thickening in the left abdomen suggested. This could represent enteritis. Electronically signed by: Zenon Rivero M.D. 08/04/2017 7:19 AM Dictated Date/Time: 08/04/2017 7:14 AM
[2017-08-04 07:39] VITALS: BP 149/70; PULSE 70; TEMP 36.8; O2SAT 93
[2017-08-04 07:52] LABS: HEMATOCRIT 44.6 % (42-52); HEMOGLOBIN 15.4 g/dL (14.0-18.0); MEAN CELL VOLUME 83.7 fL (80-100); MEAN CORPUSCULAR HEMOGLOBIN 28.9 pg (25-34); MEAN CORPUSCULAR HGB CONC 34.5 g/dl (32-36); PLATELET COUNT 246 K/uL (130-400); RED CELL DISTRIBUTION WIDTH CV 14.7 % (11.5-14.5); RED CELL DISTRIBUTION WIDTH SD 45.5 fL (36.4-46.3); WHITE BLOOD COUNT 8.43 K/uL (4.8-10.8)
[2017-08-04 08:27] LABS: CALCIUM 8.2 mg/dl (8.5-10.1); CREATININE 0.9 mg/dl (0.60-1.40); POTASSIUM 3.9 mmol/L (3.5-5.1)
[2017-08-04] MEDS: NICOTINE 21 MG/24 HR TDSY TD SCH (08:28)
[2017-08-04] MEDS: GABAPENTIN 100 MG CAP PO SCH (08:30)
[2017-08-04] MEDS: PANTOprazole SOD 40 MG TAB PO SCH (08:30)
[2017-08-04] MEDS: LISINOPRIL 10 MG TAB PO SCH (08:30)
[2017-08-04] MEDS: ENOXAPARIN 40 MG/0.4 ML SYR SQ SCH (08:32)
--- NOTE | 2017-08-04 11:59 | Progress Note ---
Progress Note Date of Service Aug 04, 2017. Progress Note Below is the results for the outpatient CT abdomen and pelvis exam 08/03/2017 3: [address] abdomen and pelvis COMPARISON CT ABDOMEN /PELVIS WITH/WITHOUT IV CONTRAST WITHOUT ORAL dated 04/02/2017; CT ABDOMEN /PELVIS WITH/WITHOUT IV CONTRAST WITHOUT ORAL dated 04/12/2016CT ABDOMEN /PELVIS WITH/WITHOUT IV CONTRAST WITHOUT ORAL dated 04/02/2017; CT ABDOMEN /PELVIS WITH/WITHOUT IV CONTRAST WITHOUT ORAL dated 04/12/2016; PET CT SKULL BASE TO MID THIGH dated 06/21/2016 FINDINGS LOWER CHEST: HEART(visualized): Coronary artery calcifications. LUNG BASES: Mild atelectasis. ABDOMEN/PELVIS: LINES AND DEVICES: None. LIVER: Diffuse hepatic steatosis. Mild hepatomegaly. BILE DUCTS: Within normal limits. GALLBLADDER: No calcified gallstones. PANCREAS: Within normal limits. SPLEEN: Within normal limits. ADRENALS: Within normal limits. KIDNEYS/URETERS: Bilateral water density renal cysts, similar to the prior exam. There is a large left renal lower pole cyst measuring up to 11 cm in diameter, similar to the prior exam. No hydroureteronephrosis or urinary calculi. BLADDER: The bladder is decompressed. There is mild perivesical fatty stranding , possibly post treatment change. There is a small left anterolateral bladder diverticulum. No definitive enhancing bladder mass is appreciated. BOWEL: There are a few scattered colonic diverticula without CT evidence of acute diverticulitis. The appendix is within normal limits. There is abnormal distension of several mid small bowel loops measuring up to 41 mm in diameter proximal to a segment of mid small bowel demonstrating soft tissue density wall thickening without mural hyperenhancement/stratified enhancement and with associated luminal narrowing. There is mild adjacent mesenteric stranding/ edema and mesenteric lymphadenopathy with short axis measurement up to 13 mm with additional smaller shotty lymph nodes. No calcification associated with the mesenteric lymphadenopathy. Distal small bowel is decompressed. Normal caliber colon. The findings are nonspecific, possibly infectious ileitis, neoplastic (lymphoma, GIST, less likely carcinoid or adenocarcinoma), or less likely ischemic. LYMPH NODES: Mesenteric lymphadenopathy, nonspecific, possibly reactive or neoplastic with largest short axis measurement 13 mm. No retroperitoneal lymphadenopathy is appreciated. VESSELS: Atherosclerotic changes with mild stable ectasia of the common iliac arteries, largest on the right 17 mm. No abdominal aortic aneurysm. No superior mesenteric artery or vein thrombosis. No mesenteric or portal venous air. REPRODUCTIVE ORGANS: No pelvic mass. PERITONEUM/RETROPERITONEUM: No abscess, ascites, or free air. ABDOMINAL WALL/SOFT TISSUES: Small lipoma left piriformis muscle, unchanged. BONES: Degenerative changes are present in the spine. IMPRESSION Partial mid small bowel obstruction secondary to soft tissue density wall thickening mid small bowel with adjacent mesenteric edema and lymphadenopathy. Infectious ileitis, neoplasm, or less likely ischemic etiologies are in the differential. Perivesical stranding, possibly posttreatment changes. Small left bladder diverticulum. The bladder is decompressed. No definite enhancing bladder mass appreciated this time. Bilateral renal cysts, unchanged. Hepatic steatosis and mild hepatomegaly. KUB inpatient 08/04/17 admission 1. No gross evidence of bowel obstruction or free air. 2. Oral contrast noted in the large bowel. 3. Mild small bowel wall thickening in the left abdomen suggested. This could represent enteritis. Physical Exam General: no acute distress Lungs: CTABL Heart: Regular heart rate Abdomen: truncal obesity, palpable hernia above umbilicus with tenderness on palpation Extremities: no edema Assessment / Plan Patient with intermittent abdominal pain. As per patient's , this has been going on for some months. As per patient, he had acute episodes of abdominal pain on 07/28/17 and 08/02/17 and for which he was sent for outpatient CT abdomen and pelvis performed on 08/03/17 and subsequently told by his PCP to come to the hospital for further evaluation. Patient denied abdominal pain immediately prior to hospital presentation and no pain on admission and follow up exams on . Patient denies vomiting or constipation. General Surgery evaluated the patient on 08/04/17 "Partial SBO with CT finding in outpatient study -IVF -clear diet with current minimal symptoms -IV abx -repeat CT scan on Sunday to re-evaluate CT finding" Gastroenterology service also requested for evaluation. Patient reports normal colonoscopy over 1 year ago. Stool studies to be sent Gastroenterology advised patient of obtaining an MRI enterography, patient reporst he cannot tolerate MRI due to claustrophobia CT abdomen/pelvis which has been ordered for General Surgery consult service have been re-ordered with the comments of CT enterography which is an alternative to MRI enterography and as per transporter radiology both of these imaging techniques are available at [facility] Currently the differentials are infectious enteritis or ileitis vs hernia/ adhesions neoplasm. Patient receiving IV Zosyn if this is infectious cause. Perhaps if there is reduction in bowel wall inflammation on planned repeat CT abdomen/pelvis from the antibiotics then transient inflammation or infection is more likely than fixed neoplasm mass of fixed adhesions Hypokalemia and Hypomagnesemia have been corrected with repletions Blood pressure: on Lisinopril Diet: Clear liquid Diet DVT ppx
[2017-08-04 15:36] VITALS: BP 122/77; PULSE 69; TEMP 36.8; O2SAT 93
--- NOTE | 2017-08-04 16:42 | GASTROINTESTINAL CONSULTATION ---
DATE OF CONSULTATION: 08/04/2017 CHIEF COMPLAINT: Abnormal CT and abdominal discomfort. HISTORY OF PRESENT ILLNESS: The patient is a 61-year-old male who presented to the Emergency Room yesterday evening for evaluation of abdominal discomfort. The patient has had intermittent symptoms over the last 1-2 weeks which he describes as epigastric discomfort, sometimes radiating towards his back. He underwent a CT scan yesterday for evaluation and was found to have evidence of a dilated small intestine with inflammatory changes in the mid small bowel with downstream decompression. The patient notes that he is passing bowel movements and denies having nausea, vomiting, fevers or chills. PAST SURGICAL HISTORY: Notable for an umbilical hernia repair which was performed several years ago. PAST MEDICAL HISTORY: 1. Bladder cancer. 2. Hypercholesterolemia. 3. Renal cyst. 4. Hypertension. 5. Obstructive sleep apnea. 6. Gastroesophageal reflux. 7. Webb esophagus. 8. Internal hemorrhoids. OUTPATIENT MEDICATIONS: 1. Chantix. 2. Omeprazole 40 mg per day. 3. Lisinopril 10 mg per day. 4. Neurontin 100 mg 3 times daily. 5. Hydrochlorothiazide 25 mg daily. 6. [place] 3 fatty acid. 7. Baby aspirin. SOCIAL HISTORY: The patient is a smoker, 1 pack per day. The patient denies alcohol use. FAMILY HISTORY: Diabetes in mother. No history of small bowel cancer, colon cancer. ALLERGIES: STATIN, CODEINE AND SHELLFISH. REVIEW OF SYSTEMS: GENERAL: No fevers, no chills. CARDIAC: No chest pain. PULMONARY: History of sleep apnea on CPAP. PSYCHIATRIC: No depression. No suicidal ideation. GASTROINTESTINAL: Please see history of present illness. GENITOURINARY: History of bladder cancer. DERMATOLOGY: No rashes. No itching. MUSCULOSKELETAL: No new joint pains. No new muscle pains. HEENT: No difficulty swallowing. ENDOCRINE: No polyuria, no polydipsia. The patient is not followed for diabetes. PHYSICAL EXAMINATION: VITAL SIGNS: Temperature is 36.8, pulse is 69, respiratory rate 18, blood pressure is 122/77, and pulse ox is 93%. HEENT: No scleral icterus noted. NECK: No JVD noted. LUNGS: Clear to auscultation. CARDIAC: Regular rhythm and rate. ABDOMEN: Obese abdomen, soft, mild epigastric tenderness noted in the region of his supraumbilical region. No rebound or peritoneal signs noted. EXTREMITIES: No edema noted today. NEUROLOGIC: Motor grossly intact. No asterixis noted. LABORATORIES: White blood cell count of 12.05 on admission to 8.43 this morning, hemoglobin 15.4, hematocrit is 44.6, and platelet count is 246. PT 10.3, INR 1.0. Sodium 137, potassium is 3.9, chloride is 103, BUN is 10, creatinine is 0.9, calcium 8.2. AST 31, ALT 43, bilirubin 0.5, alkaline phosphatase 71, albumin 3.5, lipase 153. IMAGING STUDIES: Dated 08/03/2017 - CT abdomen done at an outside institution notable for partial small-bowel obstruction, secondary soft tissue density in the mid small bowel with mesenteric edema and lymphadenopathy. IMPRESSION: The patient is presenting for an abnormal CT scan associated with intermittent abdominal discomfort. Of note, the patient does have significant changes in the mid small bowel. I was able to review a prior CT scan from late 2016, which showed similar changes in the small intestine. Given this, I would wonder about a chronic process or perhaps an adhesion. Unfortunately, the location of small bowel is difficult to get to endoscopically and not presently available in the region. I would recommend that the patient undergo a CT enterography once taking p.o. Ideally, the patient would have an MR enterography; however, he is not able to tolerate MRI. RECOMMENDATIONS: CT enterography. Continue with IV hydration. Antibiotic support per general surgery. If symptoms fail to improve, the patient may require potential surgical intervention or referral to tertiary center where balloon enteroscopy is available. Please call with any questions or concerns.
[2017-08-04 23:11] VITALS: BP 114/74; PULSE 64; TEMP 36.6; O2SAT 93
[2017-08-05] MEDS: PIPERACILL/TAZOBAC IV 4.5 GM in DEXTROSE 5% 100ML IV SCH ×2 (01:34→10:06)
[2017-08-05 06:07] LABS: BASO % 0.3 %; BASO ABS # 0.02 K/uL (0-0.2); EOS % 4.3 %; EOS ABS # 0.34 K/uL (0-0.5); HEMATOCRIT 44.6 % (42-52); HEMOGLOBIN 15.4 g/dL (14.0-18.0); IG# 0.04 K/uL (0.00-0.02); LYMPH % 30.3 %; LYMPH ABS # 2.41 K/uL (1.2-3.4); MEAN CELL VOLUME 84.2 fL (80-100); MEAN CORPUSCULAR HEMOGLOBIN 29.1 pg (25-34); MEAN CORPUSCULAR HGB CONC 34.5 g/dl (32-36); MEAN PLATELET VOLUME 9.1 fL (7.4-10.4); MONO % 6.9 %; MONO ABS # 0.55 K/uL (0.11-0.59); NEUT % 57.7 %; NEUT ABS # 4.59 K/uL (1.4-6.5); PLATELET COUNT 247 K/uL (130-400); RED CELL DISTRIBUTION WIDTH CV 14.8 % (11.5-14.5); RED CELL DISTRIBUTION WIDTH SD 45.8 fL (36.4-46.3); WHITE BLOOD COUNT 7.95 K/uL (4.8-10.8)
[2017-08-05 06:39] LABS: ALBUMIN 3.3 gm/dl (3.4-5.0); CALCIUM 8.5 mg/dl (8.5-10.1); CREATININE 1.02 mg/dl (0.60-1.40); POTASSIUM 4.1 mmol/L (3.5-5.1)
[2017-08-05 06:42] LABS: TOTAL PROTEIN 6.5 gm/dl (6.4-8.2)
[2017-08-05] MEDS ORDERED: OPTIRAY 320 IV PRN (06:45)
[2017-08-05 07:33] VITALS: BP 146/91; PULSE 65; TEMP 36.5; O2SAT 95
[2017-08-05 08:00] VITALS: O2SAT 95
[2017-08-05] MEDS: GABAPENTIN 100 MG CAP PO SCH (09:00)
[2017-08-05] MEDS: LISINOPRIL 10 MG TAB PO SCH ×2 (09:01→10:01)
[2017-08-05] MEDS: ENOXAPARIN 40 MG/0.4 ML SYR SQ SCH (09:04)
[2017-08-05] MEDS: NICOTINE 21 MG/24 HR TDSY TD SCH (09:05)
--- NOTE | 2017-08-05 09:06 | Surgery Progress Note ---
Surgery Progress Note Date of Service Aug 05, 2017. Subjective Post OP Day: + feeling well, + bowel movement, + flatus, + diet (clears), No complaints, No nausea, No vomiting Objective Vital Signs: Date Time Temp Pulse Resp B/P (MAP) Pulse Ox O2 Delivery O2 Flow Rate FiO2 08/05/17 08:00 95 Room Air 08/05/17 07:33 36.5 65 16 146/91 (109) 95 08/04/17 23:35 Room Air 08/04/17 23:11 36.6 64 16 114/74 (87) 93 Room Air 08/04/17 16:20 Room Air 08/04/17 15:36 36.8 69 18 122/77 (92) 93 Room Air General Appearance: WD/WN, no apparent distress Head: normocephalic, atraumatic Neck: supple, trachea midline Respiratory/Chest: chest non-tender, lungs clear Cardiovascular: regular rate, rhythm, no edema, no gallop, no murmur Abdomen: normal bowel sounds, non tender, soft, + distended (mild) Extremities: non-tender, normal inspection Laboratory Results: Results Past 24 Hours Test 08/05/17 05:33 Range/Units White Blood Count 7.95 4.8-10.8 K/uL Red Blood Count 5.30 4.7-6.1 M/uL Hemoglobin 15.4 14.0-18.0 g/dL Hematocrit 44.6 42-52 % Mean Corpuscular Volume 84.2 80-100 fL Mean Corpuscular Hemoglobin 29.1 25-34 pg Mean Corpuscular Hemoglobin Concent 34.5 32-36 g/dl Platelet Count 247 130-400 K/uL Mean Platelet Volume 9.1 7.4-10.4 fL Neutrophils (%) (Auto) 57.7 % Lymphocytes (%) (Auto) 30.3 % Monocytes (%) (Auto) 6.9 % Eosinophils (%) (Auto) 4.3 % Basophils (%) (Auto) 0.3 % Neutrophils # (Auto) 4.59 1.4-6.5 K/uL Lymphocytes # (Auto) 2.41 1.2-3.4 K/uL Monocytes # (Auto) 0.55 0.11-0.59 K/uL Eosinophils # (Auto) 0.34 0-0.5 K/uL Basophils # (Auto) 0.02 0-0.2 K/uL RDW Standard Deviation 45.8 36.4-46.3 fL RDW Coefficient of Variation 14.8 11.5-14.5 % Immature Granulocyte % (Auto) 0.5 % Immature Granulocyte # (Auto) 0.04 0.00-0.02 K/uL Sodium Level 138 136-145 mmol/L Potassium Level 4.1 3.5-5.1 mmol/L Chloride Level 106 98-107 mmol/L Carbon Dioxide Level 25 21-32 mmol/L Anion Gap 7.0 3-11 mmol/L Blood Urea Nitrogen 9 7-18 mg/dl Creatinine 1.02 0.60-1.40 mg/dl Est Creatinine Clear Calc Drug Dose 97.6 ml/min Estimated GFR () 90.9 Estimated GFR (Non- 78.4 BUN/Creatinine Ratio 8.4 10-20 Random Glucose 101 70-99 mg/dl Calcium Level 8.5 8.5-10.1 mg/dl Total Bilirubin 0.8 0.2-1 mg/dl Aspartate Amino Transf (AST/SGOT) 32 15-37 U/L Alanine Aminotransferase (ALT/SGPT) 40 12-78 U/L Alkaline Phosphatase 68 45-117 U/L Total Protein 6.5 6.4-8.2 gm/dl Albumin 3.3 3.4-5.0 gm/dl Globulin 3.2 2.5-4.0 gm/dl Albumin/Globulin Ratio 1.0 0.9-2 Microbiology Results 08/04/17 WBC Smear - Final, Complete 08/04/17 Shiga Toxin Test, Received Pending 08/04/17 Stool Culture, Received Pending Assessment & Plan partial SBO versus ileus associated with inflammatory/infectious process -con't abx -repeat CT scan today; if inflammatory/infectious process resolving then DC on oral abx- will see as outpatient -if mass then will need GI consult or possible IR biopsy -advance diet as tolerated after CT if looks better
--- NOTE | 2017-08-05 09:23 | DIAGNOSTIC IMAGING REPORT ---
ABD/PELVIS IV AND ORAL CONT CT DOSE: 1507.14 mGy.cm HISTORY: Mass please order as CT abdomen/pelvis as CT enterography TECHNIQUE: Multiaxial CT images of the abdomen and pelvis were performed following the use of intravenous and oral contrast. A dose lowering technique was utilized adhering to the principles of ALARA. COMPARISON STUDY: Abdomen series 08/04/2017 FINDINGS: Lung bases are clear. Mild fatty replacement of the liver. Right kidney is negative for hydronephrosis. The adrenal glands are normal. The left kidney shows a 1.8 cm upper pole cyst. There is a 10 cm lower pole cyst. There is no evidence for hydronephrosis. Bowel pattern overall is nonobstructive. Within limitations of limited oral contrast there is no significant wall thickening. Several small scattered colonic diverticuli with no evidence for diverticulitis. IMPRESSION: 1. 2 left renal cysts the largest of which measures 10 cm at its lower pole. 2. Fatty infiltration of liver. 3. Unremarkable bowel pattern with no evidence for wall thickening or obstruction. The above report was generated using voice recognition software. It may contain grammatical, syntax or spelling errors. Electronically signed by: Vaibhav Owusu M.D. 08/05/2017 9:22 AM Dictated Date/Time: 08/05/2017 9:18 AM
--- NOTE | 2017-08-05 09:38 | Gastroenterology Progress Note ---
Progress Note Date of Service: Aug 05, 2017 Subjective Pt evaluation today including: conversation w/ patient, physical exam The patient notes that he is feeling well today. He does not have nausea, vomiting or epigastric discomfort. He does continue to pass flatus and small amounts of stool. Review of Systems Constitutional: No fever, No sweats, No fatigue Cardiac: + orthopnea, No chest pain, No PND, No palpitations Abdomen: No nausea, No vomiting, No constipation, No acolic stools Medications Current Inpatient Medications Medications (Trade) Dose Ordered Sig/Jasen Route Start Time Stop Time Status Last Admin Dose Admin Acetaminophen (Tylenol Tab) 650 mg Q4H PRN PO 08/03/17 21:15 09/02/17 21:14 Ondansetron HCl (Zofran Inj) 4 mg Q6H PRN IV 08/03/17 21:15 09/02/17 21:14 Miscellaneous Information (Consult) 1 ea DAILY PRN N/A 08/03/17 21:35 09/02/17 21:34 Gabapentin (Neurontin Cap) 100 mg QAM PO 08/04/17 09:00 09/03/17 08:59 08/05/17 09:00 100 MG Lisinopril (Zestril Tab) 10 mg QAM PO 08/04/17 09:00 09/03/17 08:59 08/04/17 08:30 10 MG Pantoprazole Sodium (Protonix Tab) 40 mg QAM PO 08/04/17 09:00 09/03/17 08:59 08/04/17 08:30 40 MG Enoxaparin Sodium (Lovenox Inj) 40 mg QAM SQ 08/04/17 09:00 09/03/17 08:59 08/05/17 09:04 40 MG Piperacillin Sod/ Tazobactam Sod 4.5 gm/Dextrose 120 ml @ 30 mls/hr Q8H IV 08/04/17 02:00 08/14/17 01:59 08/05/17 01:34 30 MLS/HR Nicotine (Nicoderm Cq 21MG Patch) 1 patch DAILY TD 08/04/17 09:00 09/03/17 08:59 08/05/17 09:05 1 PATCH Miscellaneous (Remove Nicoderm Patch) 1 ea DAILY@2100 N/A 08/04/17 21:00 09/03/17 20:59 Ioversol (Optiray 320) 100 ml UD PRN IV 08/05/17 06:45 08/09/17 06:44 Objective Vital Signs Date Time Temp Pulse Resp B/P (MAP) Pulse Ox O2 Delivery O2 Flow Rate FiO2 08/05/17 08:00 95 Room Air 08/05/17 07:33 36.5 65 16 146/91 (109) 95 08/04/17 23:35 Room Air 08/04/17 23:11 36.6 64 16 114/74 (87) 93 Room Air 08/04/17 16:20 Room Air 08/04/17 15:36 36.8 69 18 122/77 (92) 93 Room Air Physical Exam General Appearance: no apparent distress Neck: no JVD Respiratory/Chest: lungs clear Cardiovascular: regular rate, rhythm Neurologic/Psych: oriented x 3 Skin: no jaundice Laboratory Results Last 24 Hours Test 08/05/17 05:33 White Blood Count 7.95 K/uL Red Blood Count 5.30 M/uL Hemoglobin 15.4 g/dL Hematocrit 44.6 % Mean Corpuscular Volume 84.2 fL Mean Corpuscular Hemoglobin 29.1 pg Mean Corpuscular Hemoglobin Concent 34.5 g/dl Platelet Count 247 K/uL Mean Platelet Volume 9.1 fL Neutrophils (%) (Auto) 57.7 % Lymphocytes (%) (Auto) 30.3 % Monocytes (%) (Auto) 6.9 % Eosinophils (%) (Auto) 4.3 % Basophils (%) (Auto) 0.3 % Neutrophils # (Auto) 4.59 K/uL Lymphocytes # (Auto) 2.41 K/uL Monocytes # (Auto) 0.55 K/uL Eosinophils # (Auto) 0.34 K/uL Basophils # (Auto) 0.02 K/uL RDW Standard Deviation 45.8 fL RDW Coefficient of Variation 14.8 % Immature Granulocyte % (Auto) 0.5 % Immature Granulocyte # (Auto) 0.04 K/uL Sodium Level 138 mmol/L Potassium Level 4.1 mmol/L Chloride Level 106 mmol/L Carbon Dioxide Level 25 mmol/L Anion Gap 7.0 mmol/L Blood Urea Nitrogen 9 mg/dl Creatinine 1.02 mg/dl Est Creatinine Clear Calc Drug Dose 97.6 ml/min Estimated GFR () 90.9 Estimated GFR (Non- 78.4 BUN/Creatinine Ratio 8.4 Random Glucose 101 mg/dl Calcium Level 8.5 mg/dl Total Bilirubin 0.8 mg/dl Aspartate Amino Transf (AST/SGOT) 32 U/L Alanine Aminotransferase (ALT/SGPT) 40 U/L Alkaline Phosphatase 68 U/L Total Protein 6.5 gm/dl Albumin 3.3 gm/dl Globulin 3.2 gm/dl Albumin/Globulin Ratio 1.0 Assessment and Plan Patient admitted with possible small bowel obstruction on CT scan from Sunday. It appears that his symptoms are improved as compared to admission. We are awaiting the results of the CT enterography which was performed this morning. Based on the initial CT there is a question about inflammatory changes versus mass effect or an adhesion. Hopefully this can be further clarified with the most recent CT scan Recommendations Await CT enterography We could consider outpatient wireless capsule endoscopy (patient would need a patency capsule prior) Appreciate surgical input
[2017-08-05] MEDS: PANTOprazole SOD 40 MG TAB PO SCH (10:01)
--- NOTE | 2017-08-05 12:47 | Progress Note ---
Internal Med Progress Note Date of Service: Aug 05, 2017. Provider Documentation: SUBJECTIVE: Patient was seen and evaluated after the CT enteroscopy was completed. Patient denies abdominal pain, or vomiting. Reports being able to use the bathroom. OBJECTIVE: General: no acute distress Neck: trachea midline, no JVD Lungs: CTABL Heart: Regular heart rate Abdomen: truncal obesity, palpable hernia above umbilicus but is nontender on palpation Extremities: no edema ASSESSMENT & PLAN: Below is the results for the outpatient CT abdomen and pelvis exam 08/03/2017 3: [address] abdomen and pelvis COMPARISON CT ABDOMEN /PELVIS WITH/WITHOUT IV CONTRAST WITHOUT ORAL dated 04/02/2017; CT ABDOMEN /PELVIS WITH/WITHOUT IV CONTRAST WITHOUT ORAL dated 04/12/2016CT ABDOMEN /PELVIS WITH/WITHOUT IV CONTRAST WITHOUT ORAL dated 04/02/2017; CT ABDOMEN /PELVIS WITH/WITHOUT IV CONTRAST WITHOUT ORAL dated 04/12/2016; PET CT SKULL BASE TO MID THIGH dated 06/21/2016 FINDINGS LOWER CHEST: HEART(visualized): Coronary artery calcifications. LUNG BASES: Mild atelectasis. ABDOMEN/PELVIS: LINES AND DEVICES: None. LIVER: Diffuse hepatic steatosis. Mild hepatomegaly. BILE DUCTS: Within normal limits. GALLBLADDER: No calcified gallstones. PANCREAS: Within normal limits. SPLEEN: Within normal limits. ADRENALS: Within normal limits. KIDNEYS/URETERS: Bilateral water density renal cysts, similar to the prior exam. There is a large left renal lower pole cyst measuring up to 11 cm in diameter, similar to the prior exam. No hydroureteronephrosis or urinary calculi. BLADDER: The bladder is decompressed. There is mild perivesical fatty stranding , possibly post treatment change. There is a small left anterolateral bladder diverticulum. No definitive enhancing bladder mass is appreciated. BOWEL: There are a few scattered colonic diverticula without CT evidence of acute diverticulitis. The appendix is within normal limits. There is abnormal distension of several mid small bowel loops measuring up to 41 mm in diameter proximal to a segment of mid small bowel demonstrating soft tissue density wall thickening without mural hyperenhancement/stratified enhancement and with associated luminal narrowing. There is mild adjacent mesenteric stranding/ edema and mesenteric lymphadenopathy with short axis measurement up to 13 mm with additional smaller shotty lymph nodes. No calcification associated with the mesenteric lymphadenopathy. Distal small bowel is decompressed. Normal caliber colon. The findings are nonspecific, possibly infectious ileitis, neoplastic (lymphoma, GIST, less likely carcinoid or adenocarcinoma), or less likely ischemic. LYMPH NODES: Mesenteric lymphadenopathy, nonspecific, possibly reactive or neoplastic with largest short axis measurement 13 mm. No retroperitoneal lymphadenopathy is appreciated. VESSELS: Atherosclerotic changes with mild stable ectasia of the common iliac arteries, largest on the right 17 mm. No abdominal aortic aneurysm. No superior mesenteric artery or vein thrombosis. No mesenteric or portal venous air. REPRODUCTIVE ORGANS: No pelvic mass. PERITONEUM/RETROPERITONEUM: No abscess, ascites, or free air. ABDOMINAL WALL/SOFT TISSUES: Small lipoma left piriformis muscle, unchanged. BONES: Degenerative changes are present in the spine. IMPRESSION Partial mid small bowel obstruction secondary to soft tissue density wall thickening mid small bowel with adjacent mesenteric edema and lymphadenopathy. Infectious ileitis, neoplasm, or less likely ischemic etiologies are in the differential. Perivesical stranding, possibly posttreatment changes. Small left bladder diverticulum. The bladder is decompressed. No definite enhancing bladder mass appreciated this time. Bilateral renal cysts, unchanged. Hepatic steatosis and mild hepatomegaly. KUB inpatient 08/04/17 admission 1. No gross evidence of bowel obstruction or free air. 2. Oral contrast noted in the large bowel. 3. Mild small bowel wall thickening in the left abdomen suggested. This could represent enteritis. CT Enteroscopy Bowel pattern overall is nonobstructive. Within limitations of limited oral contrast there is no significant wall thickening. Several small scattered colonic diverticuli with no evidence for diverticulitis. IMPRESSION: 1. 2 left renal cysts the largest of which measures 10 cm at its lower pole. 2. Fatty infiltration of liver. 3. Unremarkable bowel pattern with no evidence for wall thickening or obstruction. Patient with intermittent abdominal pain. As per patient's , this has been going on for some months. As per patient, he had acute episodes of abdominal pain on 07/28/17 and 08/02/17 and for which he was sent for outpatient CT abdomen and pelvis performed on 08/03/17 and subsequently told by his PCP to come to the hospital for further evaluation. Patient denied abdominal pain immediately prior to hospital presentation and no pain on admission and follow up exams in the hospital. Patient denies vomiting or constipation Patient received IV antibiotics of Zosyn in case there was inflammation in the GI tract secondary to infection such as ileitis or enteritis. Patient evaluated by general surgery service and gastroenterology service in the hospital The CT enteroscopy as recommended by gastroenterology service (MRI enteroscopy was preferred but patient reports he could not tolerate MRI scan) did not find unusual thickening of GI tract. The inflammation is presumed to have been resolved after IV Zosyn. Patient can take his outpatient Ciprofloxacin and Metronidazole for 3 more days Discharge diagnosis of: resolved ileitis, resolved enteritis Fatty liver Hypokalemia, Hypomagnesemia Hernia Follow up appointment with 08/20/2017 11:10 AM Erna Jenkins DO [facility] appointment line [phone] called to expedite earlier appointment with Dr. Jenkins Patient also has follow up appointment 08/22/2017 10:40 AM Lidia Garsia DO Gastroenterology, [facility] who evaluated the patient at [facility] Other prior appointment to 08/29/2017 10:00 AM Gabriele Romo DO General Surgery, [facility] Vital Signs: Date Time Temp Pulse Resp B/P (MAP) Pulse Ox O2 Delivery O2 Flow Rate FiO2 08/05/17 08:00 95 Room Air 08/05/17 07:33 36.5 65 16 146/91 (109) 95 08/04/17 23:35 Room Air 08/04/17 23:11 36.6 64 16 114/74 (87) 93 Room Air 08/04/17 16:20 Room Air 08/04/17 15:36 36.8 69 18 122/77 (92) 93 Room Air Lab Results: Results Past 24 Hours Test 08/05/17 05:33 Range/Units White Blood Count 7.95 4.8-10.8 K/uL Red Blood Count 5.30 4.7-6.1 M/uL Hemoglobin 15.4 14.0-18.0 g/dL Hematocrit 44.6 42-52 % Mean Corpuscular Volume 84.2 80-100 fL Mean Corpuscular Hemoglobin 29.1 25-34 pg Mean Corpuscular Hemoglobin Concent 34.5 32-36 g/dl Platelet Count 247 130-400 K/uL Mean Platelet Volume 9.1 7.4-10.4 fL Neutrophils (%) (Auto) 57.7 % Lymphocytes (%) (Auto) 30.3 % Monocytes (%) (Auto) 6.9 % Eosinophils (%) (Auto) 4.3 % Basophils (%) (Auto) 0.3 % Neutrophils # (Auto) 4.59 1.4-6.5 K/uL Lymphocytes # (Auto) 2.41 1.2-3.4 K/uL Monocytes # (Auto) 0.55 0.11-0.59 K/uL Eosinophils # (Auto) 0.34 0-0.5 K/uL Basophils # (Auto) 0.02 0-0.2 K/uL RDW Standard Deviation 45.8 36.4-46.3 fL RDW Coefficient of Variation 14.8 11.5-14.5 % Immature Granulocyte % (Auto) 0.5 % Immature Granulocyte # (Auto) 0.04 0.00-0.02 K/uL Sodium Level 138 136-145 mmol/L Potassium Level 4.1 3.5-5.1 mmol/L Chloride Level 106 98-107 mmol/L Carbon Dioxide Level 25 21-32 mmol/L Anion Gap 7.0 3-11 mmol/L Blood Urea Nitrogen 9 7-18 mg/dl Creatinine 1.02 0.60-1.40 mg/dl Est Creatinine Clear Calc Drug Dose 97.6 ml/min Estimated GFR () 90.9 Estimated GFR (Non- 78.4 BUN/Creatinine Ratio 8.4 10-20 Random Glucose 101 70-99 mg/dl Calcium Level 8.5 8.5-10.1 mg/dl Total Bilirubin 0.8 0.2-1 mg/dl Aspartate Amino Transf (AST/SGOT) 32 15-37 U/L Alanine Aminotransferase (ALT/SGPT) 40 12-78 U/L Alkaline Phosphatase 68 45-117 U/L Total Protein 6.5 6.4-8.2 gm/dl Albumin 3.3 3.4-5.0 gm/dl Globulin 3.2 2.5-4.0 gm/dl Albumin/Globulin Ratio 1.0 0.9-2 Microbiology Results 08/04/17 WBC Smear - Final, Complete 08/04/17 Shiga Toxin Test, Received Pending 08/04/17 Stool Culture, Received Pending
--- NOTE | 2017-08-05 13:18 | Discharge Instructions ---
Discharge Instructions Date of Service Aug 05, 2017. Admission Reason for Admission: SBO Discharge Discharge Diagnosis / Problem: resolved ileitis,resolved enteritis,Hypokalemia, Hypomagnesemia,Fatty Liver Discharge Goals Goal(s): Decrease discomfort Activity Recommendations Activity Limitations: per Instructions/Follow-up section Shower/Bathe: no limitations . Instructions / Follow-Up Instructions / Follow-Up Below is the results for the outpatient CT abdomen and pelvis exam 08/03/2017 3: [address] abdomen and pelvis COMPARISON CT ABDOMEN /PELVIS WITH/WITHOUT IV CONTRAST WITHOUT ORAL dated 04/02/2017; CT ABDOMEN /PELVIS WITH/WITHOUT IV CONTRAST WITHOUT ORAL dated 04/12/2016CT ABDOMEN /PELVIS WITH/WITHOUT IV CONTRAST WITHOUT ORAL dated 04/02/2017; CT ABDOMEN /PELVIS WITH/WITHOUT IV CONTRAST WITHOUT ORAL dated 04/12/2016; PET CT SKULL BASE TO MID THIGH dated 06/21/2016 FINDINGS LOWER CHEST: HEART(visualized): Coronary artery calcifications. LUNG BASES: Mild atelectasis. ABDOMEN/PELVIS: LINES AND DEVICES: None. LIVER: Diffuse hepatic steatosis. Mild hepatomegaly. BILE DUCTS: Within normal limits. GALLBLADDER: No calcified gallstones. PANCREAS: Within normal limits. SPLEEN: Within normal limits. ADRENALS: Within normal limits. KIDNEYS/URETERS: Bilateral water density renal cysts, similar to the prior exam. There is a large left renal lower pole cyst measuring up to 11 cm in diameter, similar to the prior exam. No hydroureteronephrosis or urinary calculi. BLADDER: The bladder is decompressed. There is mild perivesical fatty stranding , possibly post treatment change. There is a small left anterolateral bladder diverticulum. No definitive enhancing bladder mass is appreciated. BOWEL: There are a few scattered colonic diverticula without CT evidence of acute diverticulitis. The appendix is within normal limits. There is abnormal distension of several mid small bowel loops measuring up to 41 mm in diameter proximal to a segment of mid small bowel demonstrating soft tissue density wall thickening without mural hyperenhancement/stratified enhancement and with associated luminal narrowing. There is mild adjacent mesenteric stranding/ edema and mesenteric lymphadenopathy with short axis measurement up to 13 mm with additional smaller shotty lymph nodes. No calcification associated with the mesenteric lymphadenopathy. Distal small bowel is decompressed. Normal caliber colon. The findings are nonspecific, possibly infectious ileitis, neoplastic (lymphoma, GIST, less likely carcinoid or adenocarcinoma), or less likely ischemic. LYMPH NODES: Mesenteric lymphadenopathy, nonspecific, possibly reactive or neoplastic with largest short axis measurement 13 mm. No retroperitoneal lymphadenopathy is appreciated. VESSELS: Atherosclerotic changes with mild stable ectasia of the common iliac arteries, largest on the right 17 mm. No abdominal aortic aneurysm. No superior mesenteric artery or vein thrombosis. No mesenteric or portal venous air. REPRODUCTIVE ORGANS: No pelvic mass. PERITONEUM/RETROPERITONEUM: No abscess, ascites, or free air. ABDOMINAL WALL/SOFT TISSUES: Small lipoma left piriformis muscle, unchanged. BONES: Degenerative changes are present in the spine. IMPRESSION Partial mid small bowel obstruction secondary to soft tissue density wall thickening mid small bowel with adjacent mesenteric edema and lymphadenopathy. Infectious ileitis, neoplasm, or less likely ischemic etiologies are in the differential. Perivesical stranding, possibly posttreatment changes. Small left bladder diverticulum. The bladder is decompressed. No definite enhancing bladder mass appreciated this time. Bilateral renal cysts, unchanged. Hepatic steatosis and mild hepatomegaly. KUB inpatient 08/04/17 admission 1. No gross evidence of bowel obstruction or free air. 2. Oral contrast noted in the large bowel. 3. Mild small bowel wall thickening in the left abdomen suggested. This could represent enteritis. CT Enteroscopy Bowel pattern overall is nonobstructive. Within limitations of limited oral contrast there is no significant wall thickening. Several small scattered colonic diverticuli with no evidence for diverticulitis. IMPRESSION: 1. 2 left renal cysts the largest of which measures 10 cm at its lower pole. 2. Fatty infiltration of liver. 3. Unremarkable bowel pattern with no evidence for wall thickening or obstruction. Patient with intermittent abdominal pain. As per patient's , this has been going on for some months. As per patient, he had acute episodes of abdominal pain on 07/28/17 and 08/02/17 and for which he was sent for outpatient CT abdomen and pelvis performed on 08/03/17 and subsequently told by his PCP to come to the hospital for further evaluation. Patient denied abdominal pain immediately prior to hospital presentation and no pain on admission and follow up exams in the hospital. Patient denies vomiting or constipation Patient received IV antibiotics of Zosyn in case there was inflammation in the GI tract secondary to infection such as ileitis or enteritis. Patient evaluated by general surgery service and gastroenterology service in the hospital The CT enteroscopy as recommended by gastroenterology service (MRI enteroscopy was preferred but patient reports he could not tolerate MRI scan) did not find unusual thickening of GI tract. The inflammation is presumed to have been resolved after IV Zosyn. Patient can take his outpatient Ciprofloxacin and Metronidazole for 3 more days Discharge diagnosis of: resolved ileitis, resolved enteritis Fatty liver Hypokalemia, Hypomagnesemia Hernia Follow up appointment with 08/20/2017 11:10 AM Erna Jenkins DO [facility] appointment line [phone] called to expedite earlier appointment with Dr. Jenkins Patient also has follow up appointment 08/22/2017 10:40 AM Lidia Garsia DO Gastroenterology, [facility] who evaluated the patient at [facility] Other prior appointment to 08/29/2017 10:00 AM Gabriele Romo DO General Surgery, [facility] Current Hospital Diet Patient's current hospital diet: Regular Diet Discharge Diet Recommended Diet: Regular Diet Pending Studies Studies pending at discharge: yes List of pending studies: stool cultures Laboratory Results 08/05/17 05:33 Red Blood Count 5.30, Mean Corpuscular Volume 84.2, Mean Corpuscular Hemoglobin 29.1, Mean Corpuscular Hemoglobin Concent 34.5, Mean Platelet Volume 9.1, Neutrophils (%) (Auto) 57.7, Lymphocytes (%) (Auto) 30.3, Monocytes (%) (Auto) 6.9, Eosinophils (%) (Auto) 4.3, Basophils (%) (Auto) 0.3, Neutrophils # (Auto) 4.59, Lymphocytes # (Auto) 2.41, Monocytes # (Auto) 0.55, Eosinophils # (Auto) 0.34, Basophils # (Auto) 0.02 08/05/17 05:33 Test 08/03/17 19:45 08/03/17 19:48 08/04/17 07:13 08/05/17 05:33 Urine Color YELLOW Urine Appearance CLEAR (CLEAR) Urine pH 5.0 (4.5-7.5) Urine Specific [place] > 1.045 (1.000-1.030) Urine Protein NEG (NEG) Urine Glucose (UA) NEG (NEG) Urine Ketones NEG (NEG) Urine Occult Blood NEG (NEG) Urine Nitrite NEG (NEG) Urine Bilirubin NEG (NEG) Urine Urobilinogen NEG (NEG) Urine Leukocyte Esterase TRACE (NEG) Urine WBC (Auto) 1-5 /hpf (0-5) Urine RBC (Auto) 0-4 /hpf (0-4) Urine Hyaline Casts (Auto) 0 /lpf (0-5) Urine Epithelial Cells (Auto) 5-10 /lpf (0-5) Urine Bacteria (Auto) NEG (NEG) Neutrophils % (Manual) 63.2 % Lymphocytes % (Manual) 19.3 % Variant Lymphocytes % (manual) 11.4 % Monocytes % (Manual) 3.5 % Eosinophils % (Manual) 2.6 % Neutrophils # (Manual) 7.62 K/uL (1.4-6.5) Total Absolute Neutrophils 7.62 K/uL (1.4-6.5) Lymphocytes # (Manual) 2.33 K/uL (1.2-3.4) Absolute Variant Lymphocytes 1.37 K/uL Total Absolute Lymphocytes 3.70 K/uL (1.2-3.4) Monocytes # (Manual) 0.42 K/uL (0.11-0.59) Eosinophils # (Manual) 0.31 K/uL (0-0.5) Lactic Acid Level 1.2 mmol/L (0.4-2.0) Direct Bilirubin 0.1 mg/dl (0-0.2) Lipase 153 U/L (73-393) Prothrombin Time 10.3 SECONDS (9.0-12.0) Prothromb Time International Ratio 1.0 (0.9-1.1) Magnesium Level 2.3 mg/dl (1.8-2.4) Hepatitis C Antibody Screen NEG (NEG) White Blood Count 7.95 K/uL (4.8-10.8) Red Blood Count 5.30 M/uL (4.7-6.1) Hemoglobin 15.4 g/dL (14.0-18.0) Hematocrit 44.6 % (42-52) Mean Corpuscular Volume 84.2 fL (80-100) Mean Corpuscular Hemoglobin 29.1 pg (25-34) Mean Corpuscular Hemoglobin Concent 34.5 g/dl (32-36) Platelet Count 247 K/uL (130-400) Mean Platelet Volume 9.1 fL (7.4-10.4) Neutrophils (%) (Auto) 57.7 % Lymphocytes (%) (Auto) 30.3 % Monocytes (%) (Auto) 6.9 % Eosinophils (%) (Auto) 4.3 % Basophils (%) (Auto) 0.3 % Neutrophils # (Auto) 4.59 K/uL (1.4-6.5) Lymphocytes # (Auto) 2.41 K/uL (1.2-3.4) Monocytes # (Auto) 0.55 K/uL (0.11-0.59) Eosinophils # (Auto) 0.34 K/uL (0-0.5) Basophils # (Auto) 0.02 K/uL (0-0.2) RDW Standard Deviation 45.8 fL (36.4-46.3) RDW Coefficient of Variation 14.8 % (11.5-14.5) Immature Granulocyte % (Auto) 0.5 % Immature Granulocyte # (Auto) 0.04 K/uL (0.00-0.02) Anion Gap 7.0 mmol/L (3-11) Est Creatinine Clear Calc Drug Dose 97.6 ml/min Estimated GFR () 90.9 Estimated GFR (Non- 78.4 BUN/Creatinine Ratio 8.4 (10-20) Calcium Level 8.5 mg/dl (8.5-10.1) Total Bilirubin 0.8 mg/dl (0.2-1) Aspartate Amino Transf (AST/SGOT) 32 U/L (15-37) Alanine Aminotransferase (ALT/SGPT) 40 U/L (12-78) Alkaline Phosphatase 68 U/L (45-117) Total Protein 6.5 gm/dl (6.4-8.2) Albumin 3.3 gm/dl (3.4-5.0) Globulin 3.2 gm/dl (2.5-4.0) Albumin/Globulin Ratio 1.0 (0.9-2) Date/Time Source Procedure Growth Status 08/03/17 21:09 Blood Blood Culture - Preliminary NO GROWTH TO DATE. Resulted 08/04/17 23:43 Stool WBC Smear - Final Complete Medical Emergencies . Who to Call and When: Medical Emergencies: If at any time you feel your situation is an emergency, please call 911 immediately. . Non-Emergent Contact Non-Emergency issues call your: Primary Care Provider, [employer] . . "Provider Documentation" section prepared by Ross Hoyos. . VTE Core Measure Inpt VTE Proph given/why not?: Enoxaparin (Lovenox)SQ
--- NOTE | 2017-08-05 13:20 | Discharge Summary ---
Discharge Summary Date of Service Aug 05, 2017. Discharge Summary Admission Date: Aug 03, 2017 at 21:07 Discharge Date: Aug 05, 2017 Discharge Disposition: Home Principal Diagnosis: resolved ileitis,resolved enteritis,Hypokalemia,Hypomagnesemia,Fatty Liver, Hernia Pending Studies/Follow-Up: stool culture Medication Reconciliation Continued Medications: Aspirin Enteric Coated (Ecotrin Or Generic) 81 Mg Tab 81 MG PO QAM, TAB PT WILL CHECK WITH SURGEON FOR DIRECTIONS Ciprofloxacin Hcl (Cipro) 500 Mg Tab 500 MG PO Q12, TAB new order from today Fish Oil ([place]-3) 1 Ea Cap 1 CAP PO QAM, CAP Gabapentin (Neurontin) 100 Mg Cap 100 MG PO QAM, CAP Hydrochlorothiazide (Hctz) 25 Mg Tab 25 MG PO QAM, TAB Lisinopril (Zestril) 10 Mg Tab 10 MG PO QAM, TAB Metronidazole (Flagyl) 500 Mg Tab 500 MG PO TID for 10 Days, #30 TAB Omeprazole (Prilosec) 40 Mg Capcr 40 MG PO QAM, CAP Varenicline Tartrate (Chantix) 0.5 Mg Tab 0.5 MG PO DAILY, TAB Admission Information HPI (per Admitting provider): Patient seen with Dr. Dinh. 61 year old male who presents to the ED by referral of his PCP for evaluation of small bowel obstruction. Patient has been having mid abdominal / LLQ pain intermittently for one week. Pain was severe at times. He was seen by his PCP today who obtained a CT as an outpatient that showed partial mid small bowel obstruction secondary to soft tissue density wall thickening mid small bowel with adjacent mesenteric edema and lymphadenopathy. Patient reports he did have one episode of dark stools after taking pepto. He denies any BRBPR. No vomiting. He continues to have bowel movements. He denies fever and chills. No chest pain, shortness of breath, lightheadedness, dizziness, diaphoresis, or syncopal events. No urinary symptoms. In the ED, labs show K+ 2.9 and WBC 12K. Vitals are stable. General surgery was contacted by ED who advised admission for IV antibiotics and monitoring. He was given IVF and IV Zosyn. Physical Exam (per Admitting): please refer to Dr. Dinh's addendum for physical exam Hospital Course Below is the results for the outpatient CT abdomen and pelvis exam 08/03/2017 3: [address] abdomen and pelvis COMPARISON CT ABDOMEN /PELVIS WITH/WITHOUT IV CONTRAST WITHOUT ORAL dated 04/02/2017; CT ABDOMEN /PELVIS WITH/WITHOUT IV CONTRAST WITHOUT ORAL dated 04/12/2016CT ABDOMEN /PELVIS WITH/WITHOUT IV CONTRAST WITHOUT ORAL dated 04/02/2017; CT ABDOMEN /PELVIS WITH/WITHOUT IV CONTRAST WITHOUT ORAL dated 04/12/2016; PET CT SKULL BASE TO MID THIGH dated 06/21/2016 FINDINGS LOWER CHEST: HEART(visualized): Coronary artery calcifications. LUNG BASES: Mild atelectasis. ABDOMEN/PELVIS: LINES AND DEVICES: None. LIVER: Diffuse hepatic steatosis. Mild hepatomegaly. BILE DUCTS: Within normal limits. GALLBLADDER: No calcified gallstones. PANCREAS: Within normal limits. SPLEEN: Within normal limits. ADRENALS: Within normal limits. KIDNEYS/URETERS: Bilateral water density renal cysts, similar to the prior exam. There is a large left renal lower pole cyst measuring up to 11 cm in diameter, similar to the prior exam. No hydroureteronephrosis or urinary calculi. BLADDER: The bladder is decompressed. There is mild perivesical fatty stranding , possibly post treatment change. There is a small left anterolateral bladder diverticulum. No definitive enhancing bladder mass is appreciated. BOWEL: There are a few scattered colonic diverticula without CT evidence of acute diverticulitis. The appendix is within normal limits. There is abnormal distension of several mid small bowel loops measuring up to 41 mm in diameter proximal to a segment of mid small bowel demonstrating soft tissue density wall thickening without mural hyperenhancement/stratified enhancement and with associated luminal narrowing. There is mild adjacent mesenteric stranding/ edema and mesenteric lymphadenopathy with short axis measurement up to 13 mm with additional smaller shotty lymph nodes. No calcification associated with the mesenteric lymphadenopathy. Distal small bowel is decompressed. Normal caliber colon. The findings are nonspecific, possibly infectious ileitis, neoplastic (lymphoma, GIST, less likely carcinoid or adenocarcinoma), or less likely ischemic. LYMPH NODES: Mesenteric lymphadenopathy, nonspecific, possibly reactive or neoplastic with largest short axis measurement 13 mm. No retroperitoneal lymphadenopathy is appreciated. VESSELS: Atherosclerotic changes with mild stable ectasia of the common iliac arteries, largest on the right 17 mm. No abdominal aortic aneurysm. No superior mesenteric artery or vein thrombosis. No mesenteric or portal venous air. REPRODUCTIVE ORGANS: No pelvic mass. PERITONEUM/RETROPERITONEUM: No abscess, ascites, or free air. ABDOMINAL WALL/SOFT TISSUES: Small lipoma left piriformis muscle, unchanged. BONES: Degenerative changes are present in the spine. IMPRESSION Partial mid small bowel obstruction secondary to soft tissue density wall thickening mid small bowel with adjacent mesenteric edema and lymphadenopathy. Infectious ileitis, neoplasm, or less likely ischemic etiologies are in the differential. Perivesical stranding, possibly posttreatment changes. Small left bladder diverticulum. The bladder is decompressed. No definite enhancing bladder mass appreciated this time. Bilateral renal cysts, unchanged. Hepatic steatosis and mild hepatomegaly. KUB inpatient 08/04/17 admission 1. No gross evidence of bowel obstruction or free air. 2. Oral contrast noted in the large bowel. 3. Mild small bowel wall thickening in the left abdomen suggested. This could represent enteritis. CT Enteroscopy Bowel pattern overall is nonobstructive. Within limitations of limited oral contrast there is no significant wall thickening. Several small scattered colonic diverticuli with no evidence for diverticulitis. IMPRESSION: 1. 2 left renal cysts the largest of which measures 10 cm at its lower pole. 2. Fatty infiltration of liver. 3. Unremarkable bowel pattern with no evidence for wall thickening or obstruction. Patient with intermittent abdominal pain. As per patient's , this has been going on for some months. As per patient, he had acute episodes of abdominal pain on 07/28/17 and 08/02/17 and for which he was sent for outpatient CT abdomen and pelvis performed on 08/03/17 and subsequently told by his PCP to come to the hospital for further evaluation. Patient denied abdominal pain immediately prior to hospital presentation and no pain on admission and follow up exams in the hospital. Patient denies vomiting or constipation Patient received IV antibiotics of Zosyn in case there was inflammation in the GI tract secondary to infection such as ileitis or enteritis. Patient evaluated by general surgery service and gastroenterology service in the hospital The CT enteroscopy as recommended by gastroenterology service (MRI enteroscopy was preferred but patient reports he could not tolerate MRI scan) did not find unusual thickening of GI tract. The inflammation is presumed to have been resolved after IV Zosyn. Patient can take his outpatient Ciprofloxacin and Metronidazole for 3 more days Discharge diagnosis of: resolved ileitis, resolved enteritis Fatty liver Hypokalemia, Hypomagnesemia Hernia Follow up appointment with 08/20/2017 11:10 AM Erna Jenkins DO [facility] appointment line [phone] called to expedite earlier appointment with Dr. Jenkins Patient also has follow up appointment 08/22/2017 10:40 AM Lidia Garsia DO Gastroenterology, [facility] who evaluated [facility] patient at [facility] Other prior appointment to 08/29/2017 10:00 AM Gabriele Romo DO General Surgery, [facility] Total time spent on discharge = This includes examination of the patient, discharge planning, medication reconciliation, and communication with other providers. Discharge Instructions see above
[2017-08-05 13:41] VITALS: BP 146/91; PULSE 65; TEMP 36.5; O2SAT 95
== END 2017-08-05 14:02 | disposition home or self-care (01) | DRG 389 ==
LOC: C.EDB 16:16 → C.MSW 21:07 → ENRESERV 21:23
PROVIDERS: ADMIT Hospitalist; ATTEND Hospitalist
DX: K56.600 Partial intestinal obstruction, unspecified as to cause (principal); K52.9 Noninfective gastroenteritis and colitis, unspecified; J44.0 Chronic obstructive pulmonary disease with (acute) lower respiratory infection; K22.70 Barrett's esophagus without dysplasia; Z85.51 Personal history of malignant neoplasm of bladder; J20.9 Acute bronchitis, unspecified; I10 Essential (primary) hypertension; G47.33 Obstructive sleep apnea (adult) (pediatric); Z83.3 Family history of diabetes mellitus; F17.200 Nicotine dependence, unspecified, uncomplicated; Z88.8 Allergy status to other drugs, medicaments and biological substances; E87.6 Hypokalemia; E83.42 Hypomagnesemia; K76.0 Fatty (change of) liver, not elsewhere classified; E86.0 Dehydration

== ENCOUNTER → 2017-08-13 | Outpatient (CLI) | payer OTHER ==
[~2017-08-13] MED LIST changes: +CIPR-255 PO; -KETO10TA PO; +METR-163 PO; -OXYC-57 PO
--- NOTE | 2017-08-13 15:59 | DIAGNOSTIC IMAGING REPORT ---
ULTRASOUND RIGHT UPPER EXTREMITY VENOUS CLINICAL HISTORY: Right arm pain. COMPARISON STUDY: No priors. TECHNIQUE: Real-time, grayscale, and color Doppler sonography of the deep veins of the right upper extremity is performed. Compression and augmentation were utilized. FINDINGS: There is no sonographic evidence of deep venous thrombosis identified in the right upper extremity. The right internal jugular, axillary, and brachial veins are patent and normally compressible. Normal venous waveforms and augmentation are seen within the right subclavian vein. The cephalic and basilic veins are clear. The visualized radial and ulnar veins are patent. Nonocclusive superficial venous thrombus is seen within a superficial vein at the indicated site of pain in the antecubital region. Superficial venous thrombus extends into the mid forearm. IMPRESSION: 1. There is no sonographic evidence of deep venous thrombosis identified in the right upper extremity. 2. Superficial venous thrombus is seen around the elbow and extending in the forearm as above. Electronically signed by: Robert Johnston M.D. 08/13/2017 3:57 PM Dictated Date/Time: 08/13/2017 3:56 PM
== END | disposition home or self-care (01) ==
LOC: C.ULTR 15:09
PROVIDERS: ATTEND Student in an Organized Health Care Education/Training Program
DX: M79.601 Pain in right arm (principal)